=== PATIENT | male | born 1955 | race Caucasian/White ===

== ENCOUNTER → 2017-03-18 16:08 | Outpatient (CLI) | payer OTHER, SELFPAY ==
[2017-03-18 15:24] VITALS: BMI 26.2
[2017-03-18 16:08] VITALS: BP 200/100
[2017-03-18 17:23] LABS: Absolute Lymphocyte Count 2.89 X10^3/ul (0.83-4.51); Absolute Neutrophil Count 6.2 X10^3/uL (2.0-7.7); Basophil# 0.08 X10^3/uL; Basophil% 0.8 % (0-1); Eosinophil# 0.34 X10^3/uL; Eosinophils% 3.3 % (0-5); Hematocrit 41.8 % (40-54); Hemoglobin 14.2 g/dl (13.0-16.5); Lymphocyte # 2.89 X10^3/ul (4.0); Lymphocyte % 27.9 % (19-41); Mean Corpuscular Hgb 28.7 pg (27.0-32.0); Mean Corpuscular Volume 84.4 fL (80-94); Mean Platelet Vol. 10.4 fl (6.2-12.0); Monocyte# 0.83 X10^3/uL; Neutrophil % 59.8 % (47-70); Platelet Count 249 K/mm3 (150-450); RBC Distribution Width CV 12.7 % (11.6-14.6); RBC Distribution Width SD 38.4 fl (35.1-43.9); Red Blood Count 4.95 M/mm3 (4.6-6.2); White Blood Count 10.4 K/mm3 (4.4-11.0)
[2017-03-18 17:27] LABS: POSITIVE COUNT NO; POSITIVE DIFFERENTIAL NO; POSITIVE MORPHOLOGY NO
[2017-03-18 17:39] LABS: ALB/GLOB Ratio 0.8 RATIO (0.9-2.4); AST(SGOT) 15 U/L (15-37); Alanine Aminotransfer ALT/SGPT 21 U/L (16-61); Albumin, Serum 3.1 g/dL (3.2-5.0); Alkaline Phosphatase 127 U/L (45-117); Anion Gap 7 (5-15); BUN 31 mg/dL (7-18); BUN/Creat Ratio 18.7 RATIO (10-20); Calcium,Total 8.7 mg/dL (8.5-10.1); Chloride 97 mmol/L (98-107); Creatinine, Serum 1.66 mg/dL (0.70-1.30); EST Glomerular Filtration Rate 45 mL/min (>60); Est Glom Filt Rate - Afr Amer 54 mL/min (>60); Glucose 314 mg/dL (74-106); Potassium 3.1 mmol/L (3.5-5.1); Protein, Total 7.1 g/dL (6.4-8.2); Sodium Level 135 mmol/L (136-145); Thyroid Stim Hormone (TSH) 1.24 uIU/mL (0.358-3.74)
[2017-03-18 17:52] LABS: Hemoglobin A1c 14.1 % (4.2-6.3)
[2017-03-18 18:23] LABS: Microalbumin:Creatinine Ratio 2158.9 mg/g CRE (<30 mg/g CRE)
== END ==
PROVIDERS: Family Provider Internal Medicine; PCP Internal Medicine; Visit Provider Nurse Practitioner Family
DX: I10 Essential (primary) hypertension (principal); E11.9 Type 2 diabetes mellitus without complications
CPT/HCPCS: 80053; 82043; 82570; 83036; 84443; 85025

== ENCOUNTER → 2017-04-06 16:47 | Outpatient (CLI) | payer OTHER, SELFPAY ==
[2017-04-06 17:48] LABS: Anion Gap 7 (5-15); BUN 30 mg/dL (7-18); BUN/Creat Ratio 16.6 RATIO (10-20); Calcium,Total 9.1 mg/dL (8.5-10.1); Chloride 99 mmol/L (98-107); Creatinine, Serum 1.81 mg/dL (0.70-1.30); EST Glomerular Filtration Rate 40 mL/min (>60); Est Glom Filt Rate - Afr Amer 49 mL/min (>60); Glucose 134 mg/dL (74-106); Potassium 3.1 mmol/L (3.5-5.1); Sodium Level 138 mmol/L (136-145)
== END ==
PROVIDERS: Family Provider Internal Medicine; PCP Internal Medicine; Visit Provider Nurse Practitioner Family
DX: E87.6 Hypokalemia (principal)
CPT/HCPCS: 36415; 80048

== ENCOUNTER → 2017-04-19 15:39 | Outpatient (CLI) | payer OTHER, SELFPAY ==
--- NOTE | 2017-04-19 15:41 | RAD_ITS ---
STUDY: X-RAY - RIGHT HAND REASON FOR EXAM: Linear growth on palmar surface for one year. TECHNIQUE: 3 view(s) of the hand. COMPARISON: None. FINDINGS: Normal radiocarpal articulation. Normal distal radioulnar joint. Normal visualized carpal bones. Normal carpal articulations There are marginal osteophytes and joint space narrowing of the carpometacarpal articulation of the thumb. Normal second through fifth carpometacarpal joints. Normal metacarpi. Normal metacarpophalangeal joint of the thumb. Normal interphalangeal joint of the thumb. Normal proximal and distal phalanges of the thumb. Normal metacarpophalangeal joints of the second through fifth fingers. There are small marginal osteophytes and mild joint space narrowing of the second and fifth distal interphalangeal joints. Normal phalanges of the second through fifth fingers. There is vascular calcification. RAD/Hand Min 3 Views IMPRESSION: Arthrosis of the first carpometacarpal joint, and second and fifth distal interphalangeal joints. Electronically Signed: Ben Rice MD at 16:20 EST Tel , Service support ,
== END ==
PROVIDERS: Family Provider Internal Medicine; PCP Internal Medicine; Visit Provider Orthopaedic Surgery
DX: M79.641 Pain in right hand (principal); M18.11 Unilateral primary osteoarthritis of first carpometacarpal joint, right hand
CPT/HCPCS: 73130

== ENCOUNTER → 2017-06-08 14:58 | Outpatient (CLI) | payer OTHER, SELFPAY ==
[2017-06-08 16:26] LABS: ALB/GLOB Ratio 0.8 RATIO (0.9-2.4); AST(SGOT) 10 U/L (15-37); Alanine Aminotransfer ALT/SGPT 16 U/L (16-61); Albumin, Serum 3.3 g/dL (3.2-5.0); Alkaline Phosphatase 84 U/L (45-117); Anion Gap 7 (5-15); BUN 37 mg/dL (7-18); BUN/Creat Ratio 20.3 RATIO (10-20); Calcium,Total 9.1 mg/dL (8.5-10.1); Chloride 103 mmol/L (98-107); Cholesterol 130 mg/dL (200); Creatinine, Serum 1.82 mg/dL (0.70-1.30); EST Glomerular Filtration Rate 40 mL/min (>60); Est Glom Filt Rate - Afr Amer 49 mL/min (>60); Globulin 4.1 g/dL (2.2-4.2); Glucose 203 mg/dL (74-106); High Density Lipoprotein 37 mg/dL; Potassium 3.6 mmol/L (3.5-5.1); Protein, Total 7.4 g/dL (6.4-8.2); Sodium Level 140 mmol/L (136-145); Triglycerides 147 mg/dL; Very Low Density Lipoprotein 29 mg/dL (5-40)
== END ==
PROVIDERS: Family Provider Internal Medicine; PCP Internal Medicine; Visit Provider Nurse Practitioner Family
DX: E87.6 Hypokalemia (principal); E11.9 Type 2 diabetes mellitus without complications
CPT/HCPCS: 36415; 80053; 80061

== ENCOUNTER → 2017-07-06 13:07 | Outpatient (CLI) | payer OTHER, SELFPAY ==
--- NOTE | 2017-07-06 14:22 | NEURO ---
NCS and/or EMG Patient Report Ordering Doctor: Colette Carnes DATE OF SERVICE: 07/06/17 Melvin Hermosillo is a 61-year-old male who presents for electrodiagnostic testing of the upper limbs. He has numbness and tingling in both hands. He also reports a history of poorly controlled diabetes. Electrodiagnostic findings: Median motor nerve demonstrates prolonged distal latency bilaterally with normal amplitude and reduced conduction velocity. Normal right ulnar motor response. Left ulnar motor nerve demonstrates prolonged distal latency with reduced amplitude and reduced conduction velocity. No significant drop in conduction across the elbow. Prolonged median and ulnar F waves. Prolonged median sensory distal latency is noted absent left ulnar sensory response on needle EMG 1+ fibrillations noted in the right first dorsal interosseous. Electrodiagnostic impression: This is an abnormal study in the upper limbs. 1. Findings demonstrate bilateral median mononeuropathy, consistent with a moderate to advanced bilateral carpal tunnel syndrome 2. Advanced left-sided ulnar neuropathy is noted, without evidence of cubital tunnel syndrome. 3. Consider correlating with electrodiagnostic testing of the lower limbs to evaluate for peripheral polyneuropathy. If there are any further questions, please not hesitate to contact me
== END ==
LOC: PSN 13:07
PROVIDERS: Family Provider Internal Medicine; PCP Internal Medicine; Visit Provider Orthopaedic Surgery
DX: G56.01 Carpal tunnel syndrome, right upper limb (principal); G56.23 Lesion of ulnar nerve, bilateral upper limbs
CPT/HCPCS: 95886; 95912

== ENCOUNTER → 2017-08-19 16:28 | Outpatient (CLI) | payer OTHER, SELFPAY ==
[2017-08-19 17:36] LABS: Anion Gap 9 (5-15); BUN 40 mg/dL (7-18); BUN/Creat Ratio 20.6 RATIO (10-20); Calcium,Total 8.9 mg/dL (8.5-10.1); Chloride 108 mmol/L (98-107); Creatinine, Serum 1.94 mg/dL (0.70-1.30); EST Glomerular Filtration Rate 37 mL/min (>60); Est Glom Filt Rate - Afr Amer 45 mL/min (>60); Glucose 63 mg/dL (74-106); Potassium 3.6 mmol/L (3.5-5.1); Sodium Level 143 mmol/L (136-145)
[2017-08-19 17:46] LABS: Hemoglobin A1c 9.5 % (4.2-6.3)
== END ==
PROVIDERS: Family Provider Internal Medicine; PCP Internal Medicine; Visit Provider Internal Medicine
DX: I10 Essential (primary) hypertension (principal); E87.6 Hypokalemia; E11.9 Type 2 diabetes mellitus without complications
CPT/HCPCS: 36415; 80048; 83036

== ENCOUNTER 2017-08-31 08:00 | Day surgery (SDC) | payer OTHER, SELFPAY ==
[2017-08-31] VITALS (9 sets, daily range): BP systolic 134–179; BP diastolic 81–93; PULSE 51–58; RESP 14–18; TEMP 36.4–36.5; O2SAT 94–98; BMI 27.2
[2017-08-31] MEDS: Cefazolin 2 GM in 0.9% Normal Saline 100 ML IV (07:00)
[2017-08-31 09:01] LABS: Bedside Glucose 130 mg/dL (70-110)
[2017-08-31] MEDS: Mupirocin Ointment 22gm Tube 1 APPLIC (10:46)
--- NOTE | 2017-08-31 11:24 | PCM.DC.ORTHO ---
Discharge Diet: No Restrictions - use hand as tolerated, keep clean and dry, follow up in 2 weeks for dressing change and suture removal Discharge Activity: May Not Drive May shower in (days): 1 Ice area for (Minutes): 20 - Every hour while awake. Weight Bearing Status: Weight bearing as tolerated Keep extremity elevated above heart level: Operative Extremity Call your doctor if your incision/area has: Continuous Slow Oozing, Sudden Increased Bleeding, Increased Pain/ Swelling, Increased Redness, Foul Smelling Discharge Call your doctor if you observe: Fever of 101 or Higher, Coldness, Increased Pain, Numbness or Tingling, Change in Color, Calf discomfort Allergies/Adverse Reactions: Allergies No Known Allergies Allergy (Verified 08/31/17 08:31) Medications to take at Discharge chlorthalidone 25 mg tablet 25 mg PO QDAY #90 tab 03/07/17 glipizide ER 5 mg tablet, extended release 24 hr 10 mg PO DAILY@0800 #90 tab 03/07/17 lisinopril 40 mg tablet 40 mg PO QDAY #90 tab 03/07/17 metoprolol succinate ER 100 mg tablet,extended release 24 hr 100 mg PO .daily #90 tab 03/07/17 timolol maleate 0.25 % eye drops 1 drp OPHTHALMIC DAILY #10 ml 03/07/17 potassium chloride ER 20 mEq tablet,extended release 40 meq PO BID #120 tab 04/07/17 aspirin 325 mg tablet 325 mg PO DAILY 06/15/17 hydralazine 50 mg tablet 75 mg PO Q8H #90 tab 06/15/17 amlodipine 10 mg tablet 10 mg PO QDAY #60 tab 08/22/17 Insulin Glargine,Hum.rec.anlog [Cris Cheema U-100] 27 unit [facility] 08/24/17 Primary Care Physician: Solomon Melendrez MD [Primary Care Provider] - Test Results: Test results from this visit will be discussed in further detail at your follow-up appointment, if applicable. Please Follow Up With: Colette Carnes, - [phone]
--- NOTE | 2017-08-31 11:25 | OP.PCM_ITS ---
Report of Operation Date of Procedure: 08/31/17 Pre-Operative Diagnosis: left carpal tunnel syndrome Post-Operative Diagnosis: same Surgery/Procedure Performed:: left carpal tunnel release Type of Anesthesia:: Isabel Florentino Anesthesiologist: Akash Parkinson Drains: wtt- 15 min Estimated Blood Loss (mL): none Fluids Replaced: 1000ml lr Description of Procedure: Preoperative note Patient is a 61 year old male patient with nerve conduction study confirming carpal tunnel syndrome. Patient failed conservative treatment for her carpal tunnel elected proceed with left carpal tunnel release. Risks benefits and alternatives surgery discussed with patient. Risks including but not limited to blood loss, blood clot, infection, neurovascular injury, failure procedure, loss of life and loss of limb. Patient is aware like proceed with left carpal tunnel release. Operative note Patient seen and examined preoperative holding area. Left hand was marked. History and physical and consent reviewed. Patient was brought to the operating room placed supine on the operating table. Sign in, anesthesia, antibiotics were administered. Left upper extremity was prepped and draped after [place] block was initiated. All bony prominences well-padded SCDs placed on bilateral lower extremities. We marked out our incisions for our carpal tunnel release at the intersection of Hillary's line in the fourth ray flexed. We extended about a centimeter and a half. Timeout was performed. We then checked ensure that the [place] block was working with pickups which it was. We then used a 15 blade to make a skin incision. We then dissected down tenotomy syllable of the transverse carpal ligament. We then used a new 15 blade cut through the transverse carpal ligament down to the level of the median nerve. We then further released the median nerve the combination of the 15 blade and tenotomies. The nerve was grayish in color and adherent to the transverse carpal ligament volarly. We released the transverse carpal ligament distally to the fat pad and then proximally under standard technique. We then palpated to ensure that we released all of the transverse carpal ligament which we did. We irrigated the incision with copious amounts of sterile saline. All bleeders were coagulated. The incision was closed with interrupted 4-0 nylon stitches. Tourniquet was deflated for total working time of 14 minutes. Patient tolerated procedure well there were no complications. Patient transferred to recovery room in stable condition. Postoperative note Hospital pharmacy has prescription Leave dressing clean dry and intact Follow-up in 2 weeks Call with concerns This note was generated with [employer] dictation software. It may contain incorrect words, spelling, and punctuation that were not noted in checking the note before signing.
[2017-08-31 12:11] LABS: Bedside Glucose 152 mg/dL (70-110)
== END 2017-08-31 12:40 | disposition home or self-care (01) ==
LOC: SDC 08:01 → AC 08:02
PROVIDERS: Family Provider Internal Medicine; PCP Internal Medicine; Visit Provider Orthopaedic Surgery
PROC: (CPT 64721; principal; 2017-08-31 09:15)
DX: G56.02 Carpal tunnel syndrome,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 (principal); I69.398 Other sequelae of cerebral infarction; I10 Essential (primary) hypertension; K21.9 Gastro-esophageal reflux disease without esophagitis; E11.9 Type 2 diabetes mellitus without complications; H40.9 Unspecified glaucoma; M19.90 Unspecified osteoarthritis, unspecified site; Z87.891 Personal history of nicotine dependence; Z79.4 Long term (current) use of insulin; Z79.84 Long term (current) use of oral hypoglycemic drugs; Z79.811 Long term (current) use of aromatase inhibitors; Z79.899 Other long term (current) drug therapy
CPT/HCPCS: 64721; 82962; J7120; J2405

== ENCOUNTER → 2017-09-05 13:31 | Outpatient (CLI) | payer OTHER, SELFPAY ==
--- NOTE | 2017-09-14 08:34 | LEAS ---
Arterial Study - Arterial Study Arterial Study: Date of scan: 09/05/[address] Avila History: Patient with previous smoking hypertension and diabetes. Interpretation: Right lower extremity shows more of a monophasic flow noted at the ankle the posterior tibial unable to get a ABIs its noncompressible. More of a biphasic flow noted of the dorsalis pedis with an HÉCTOR 1.15. Next Left lower extremity both vessels are noncompressible and unable to get an HÉCTOR at the ankle. Duplex that shows more of a triphasic waveform noted the posterior tibial and a biphasic of the DP. Impression: 1. Evidence of some arterial occlusive disease with noncompressibility noted at the ankle and biphasic flow of the dorsalis pedis with the HÉCTOR 1.15 that may be slightly falsely elevated. Further evaluation as clinically warranted. 2. Unable to get an HÉCTOR consistent with medial calcinosis. There is triphasic flow noted the posterior tibial. Further evaluation as clinically warranted
== END ==
LOC: CVS 13:31
PROVIDERS: Family Provider Internal Medicine; PCP Internal Medicine; Visit Provider Internal Medicine
DX: M79.604 Pain in right leg (principal); R25.2 Cramp and spasm; I10 Essential (primary) hypertension; Z87.891 Personal history of nicotine dependence
CPT/HCPCS: 93922

== ENCOUNTER → 2017-10-05 15:41 | Outpatient (CLI) | payer OTHER, SELFPAY ==
[2017-10-05 18:00] LABS: BUN 38 mg/dL (7-18); Creatinine, Serum 2.12 mg/dL (0.70-1.30); Glucose 186 mg/dL (74-106)
[2017-10-05 18:01] LABS: Anion Gap 12 (5-15); BUN/Creat Ratio 17.9 RATIO (10-20); Calcium,Total 8.8 mg/dL (8.5-10.1); Chloride 101 mmol/L (98-107); EST Glomerular Filtration Rate 34 mL/min (>60); Est Glom Filt Rate - Afr Amer 41 mL/min (>60); Potassium 2.7 mmol/L (3.5-5.1); Sodium Level 140 mmol/L (136-145)
[2017-10-05 18:14] LABS: Microalbumin:Creatinine Ratio 805.4 mg/g CRE (<30 mg/g CRE)
== END ==
LOC: LAB 15:41
PROVIDERS: Family Provider Internal Medicine; PCP Internal Medicine; Visit Provider Internal Medicine
DX: E11.9 Type 2 diabetes mellitus without complications (principal)
CPT/HCPCS: 36415; 80048; 82043; 82570

== ENCOUNTER 2017-10-21 08:53 | Day surgery (SDC) | payer OTHER, SELFPAY ==
--- NOTE | 2017-10-14 15:00 | NURSING ---
Message left with pt about needing to increase po potassium intake and have potassium level rechecked in three days.
[2017-10-21 09:23] VITALS: BP 148/85; PULSE 55; RESP 16; TEMP 36.3; O2SAT 98; BMI 26.4
--- NOTE | 2017-10-21 09:52 | H&P.OPEN ---
Past Medical/Surgical History - Planned Operation Planned Operative Procedure/s: cscope/open access Date of Operative Procedure: 10/21/17 Permit Signed: No S.O.S: No Is This Patient Having a Total Joint: No - Previous Hospitalizations/Surgeries HX Hospitalizations: Yes - cva 2-3 yrs ago HX of Surgeries: right carpal tunnel 2018. colonoscopy Any Problems With Anesthesia: No You/Your Family Experience Fever (Hyperthermia) With Anes: No Cholinesterase deficiency: No - Cardiovascular Hx Chest Pain within Last 2 months: No Hx of Irregular Heartbeat and/or Afib: No Hx Heart Attack: No Hx Congestive Heart Failure: No Hx Rheumatic Fever: No Hx Hypertension: Yes - controlled with med most days Hx Internal Defibrillator: No Hx Pacemaker: No Hx Cardiac Catheterization: No Hx Cardiac Surgery/Stents/Etc.: No Hx Stress Test: Yes - over 10 yrs ago HX Edema: Yes - legs prn Hx Pain in Legs when Walking/Leg Cramps: Yes - cramps at night - Respiratory Chronic Cough: No HX of Shortness of Breath: No Hoarseness: No Hx Chronic Obstructive Pulmonary Disease (COPD): No Hx Asthma: No Hx Emphysema: No Hx Sleep Apnea: No Hx Oxygen Use at Home: No Hx Respiratory Tract Infection/Cold (presently): No Do You Snore Loudly (louder than talking or can be heard): No Do You Often Feel Tired/ Fatigued/ Sleepy [place]ring Daytime?: Yes Has Anyone Observed You Stop Breathing During Sleep?: No Result (for STOP score): Positive Hx Smoking: Yes - quit 30 yrs ago Smoking Status: Former smoker - Gastrointestinal Hx Gastroesophageal Reflux: No - occ heartburn prn tums Hx Gastrointestinal Disorders: No Hx Gastrointestinal Bleed: No Hx Ulcer: No Hx Hiatal Hernia: No Difficulty Chewing/Swallowing: Yes - trooubles with swallowing at times Recent Onset of Swallowing Problems: No Special diet followed at home: Yes - diabetic Hx Unplanned Weight Loss of 20#: No HX Unplanned Weight Gain of 20#: No - Neurological Hx Seizures: No HX Syncope/Blackout Spells/Unconsciousness: No Hx CVA/Stroke: Yes - 2-3 yrs ago/lost perpherial vision right eye Hx Transient Ischemic Attacks (TIA): Yes Hx Multiple Sclerosis: No Hx Parkinson's Disease: No Hx Head/Neck Injury: No Hx Headaches: No Hx Back Injury/Pain: Yes - arthritis Recent Onset of Speech Difficulty: No Restless Legs: No Does patient have nerve stimulator: No Patient instructed to have device shut off: No Rep notified?: No - Blood Disorder Hx Leukemia: No Bleeding Tendencies: Yes - bruises easily Hx Deep Vein Thrombosis: No Hx High Cholesterol: No Blood Transmitted Disease: No Hx Hepatitis: No Hx Cirrhosis: No Hx Anemia: No Hx Blood Disorders: No - Genitourinary Hx Renal Disease: Yes - ckd d/t diabetes/will be seeing nephralogist Hx Dialysis: No - Musculoskeletal Hx Arthritis: Yes Hx Rheumatoid Arthritis: No Hx Gout: No Recent Onset of an Orthopedic Problem: No - Endocrine Hx Diabetes: Yes Insulin: Yes Thyroid Disease: No Hx Steroid Therapy: No - Psycho/Social Hx Substance Use: No Hx Alcohol Use: Yes - rarely Hx Anxiety: No Hx Depression: No Mental Illness: No Hx Dementia: No - Miscellaneous Hx Cancer: No Recent Exposure to Contagious Disease: No Active MRSA: No Hx of C-Diff: No Any Loose Teeth: No Allergies No Known Allergies Allergy (Verified 10/21/17 09:18) - Discharge Is Pt Admitted From a [facility], or a Assisted: No Who Could Help: family After D/C, Where Do you Plan to Go: Return Home - From the PAT History Number of Risk Factors: 5 - Physical Exam General: Alert, Oriented x3, Cooperative Neck: No JVD Lungs: Normal air movement Cardiovascular: Regular rate, Regular Rhythm Abdomen: Soft, Non Tender, Non-Distended Vital Signs Temp Pulse Resp BP Pulse Ox 97.4 F L 55 L 16 148/85 H 98 10/21/17 09:23 10/21/17 09:23 10/21/17 09:23 10/21/17 09:23 10/21/17 09:23 Oxygen Delivery Method Room Air Weight: 200 lb 9.93 oz Body Mass Index (BMI) 26.4 Finger Stick Blood Glucose 152 Assessment/Plan 61-year-old male for screening colonoscopy 1. Patient reports he is having no abdominal pain or blood in his stool. He has no weight loss. He has a normal colonoscopy about 20 years ago. He has no family history of colon cancer. 2. I explained endoscopy in detail to the patient. I explained the risks including but not limited to stroke or heart attack with anesthesia, perforation of the GI tract, bleeding, infection. I explained that any of these could necessitate further emergency surgery. The patient understands and all questions were answered sufficiently. The patient wishes to proceed with procedure. Jt Jj MD Pager: [facility] [address] [place] [address] [address] [place] [address] Office: Surgery Risks - Colonoscopy Risks Include but are not Limited To: Risks include but are not limited to: Bleeding, perforation requiring further surgery, inability to complete colonoscopy requiring barium enema.
[2017-10-21 10:16] LABS: Bedside Glucose 223 mg/dL (70-110)
[2017-10-21 11:01] VITALS: BP 103/68; BP 148/85; PULSE 52; RESP 14; TEMP 36.5; O2SAT 95
--- NOTE | 2017-10-21 11:01 | PCM.OPRPT ---
Problem List (1) Screen for colon cancer Status: Acute Report of Operation Date of Procedure: 10/21/17 Pre-Operative Diagnosis: Screening for colon cancer Post-Operative Diagnosis: Normal colonoscopy Surgery/Procedure Performed:: Colonoscopy Description of Procedure: The major risks and benefits associated with the procedure were explained to the patient in detail. The patient verbalized understanding and agreement with the same. The patient was brought to the endoscopy suite. After adequate sedation was achieved, the patient was placed in the left lateral decubitus position and a digital rectal exam was performed. This examination was within normal limits. A well-lubricated colonoscope was then inserted into the rectum and advanced under direct visualization to the level of the cecum. The bowel prep was good. The cecum was identified by both visual and anatomic landmarks. A photograph was taken of the end of the cecum. The scope was then fully withdrawn while examining the color, texture, anatomy and integrity of the mucosa from the cecum to the anal canal. The findings were consistent with normal colonic mucosa. Over 6 minutes were taken to examine the colonic mucosa. Upon reaching the rectum the scope was retroflexed to examine the distal rectal vault. The scope was then straightened and was completely retrieved upon exiting the anal canal and the procedure was terminated. The patient was then transferred to the recovery room in stable condition. Recommendations for follow up: 10 years
[2017-10-21 11:05] VITALS: BP 148/85; BP 89/71; PULSE 51; RESP 14; O2SAT 94
[2017-10-21 11:10] VITALS: BP 129/73; BP 148/85; PULSE 52; RESP 16; O2SAT 99
[2017-10-21 11:16] VITALS: BP 118/74; BP 148/85; PULSE 98; RESP 16; TEMP 36.3; O2SAT 98
[2017-10-21 11:50] VITALS: BP 148/85
== END 2017-10-21 11:51 | disposition home or self-care (01) ==
LOC: EN 08:54 → AC 08:55
PROVIDERS: Family Provider Internal Medicine; PCP Internal Medicine; Visit Provider Surgery
PROC: 0DJD8ZZ Inspection of Lower Intestinal Tract, Via Natural or Artificial Opening Endoscopic (ICD-10-PCS; CPT 45378; principal; 2017-10-21 09:55)
DX: Z12.11 Encounter for screening for malignant neoplasm of colon (principal); I69.312 Visuospatial deficit and spatial neglect following cerebral infarction; I12.9 Hypertensive chronic kidney disease with stage 1 through stage 4 chronic kidney disease, or unspecified chronic kidney disease; E11.22 Type 2 diabetes mellitus with diabetic chronic kidney disease; N18.9 Chronic kidney disease, unspecified; M19.90 Unspecified osteoarthritis, unspecified site; R23.3 Spontaneous ecchymoses; Z79.4 Long term (current) use of insulin; Z79.82 Long term (current) use of aspirin; Z79.899 Other long term (current) drug therapy; Z87.891 Personal history of nicotine dependence
CPT/HCPCS: 45378; 82962; J7120

== ENCOUNTER → 2017-12-15 15:44 | Outpatient (CLI) | payer OTHER, SELFPAY ==
[2017-12-15 16:47] LABS: ALB/GLOB Ratio 0.8 RATIO (0.9-2.4); AST(SGOT) 19 U/L (15-37); Alanine Aminotransfer ALT/SGPT 18 U/L (16-61); Albumin, Serum 3.1 g/dL (3.2-5.0); Alkaline Phosphatase 98 U/L (45-117); Anion Gap 5 (5-15); BUN 23 mg/dL (7-18); BUN/Creat Ratio 14.1 RATIO (10-20); Calcium,Total 8.7 mg/dL (8.5-10.1); Chloride 102 mmol/L (98-107); Creatinine, Serum 1.63 mg/dL (0.70-1.30); EST Glomerular Filtration Rate 46 mL/min (>60); Est Glom Filt Rate - Afr Amer 55 mL/min (>60); Glucose 255 mg/dL (74-106); Potassium 4.1 mmol/L (3.5-5.1); Protein, Total 7.1 g/dL (6.4-8.2); Sodium Level 135 mmol/L (136-145)
[2017-12-22 12:15] LABS: Aldosterone, Serum 15.3 ng/dL (0.0-30.0); Renin, Plasma 2.409 ng/mL/hr (0.167-5.380)
== END ==
LOC: LAB 15:48
PROVIDERS: Family Provider Internal Medicine; PCP Internal Medicine; Referring Provider Internal Medicine; Visit Provider Internal Medicine
DX: I12.9 Hypertensive chronic kidney disease with stage 1 through stage 4 chronic kidney disease, or unspecified chronic kidney disease (principal); N18.3 Chronic kidney disease, stage 3 (moderate); E87.6 Hypokalemia
CPT/HCPCS: 36415; 80053; 82088; 84244

== ENCOUNTER → 2018-01-27 13:50 | Outpatient (CLI) | payer OTHER, SELFPAY ==
[2017-12-23 09:15] VITALS: BMI 27.9
--- NOTE | 2018-01-27 13:57 | VDLE_ITS ---
Reason For Study: LEG PAIN AND SWELLING RIGHT LEFT GSV is normal. GSV is normal. CFV is compressible, spontaneous, phasic, CFV is compressible, spontaneous, phasic, competent and demonstrates normal competent, and demonstrates normal augmentation. augmentation. FV is compressible, spontaneous, phasic, FV is compressible, spontaneous, phasic, competent and demonstrates normal competent and demonstrates normal augmentation. augmentation. POP V is compressible, spontaneous, phasic, POP V is compressible, spontaneous, phasic, competent and demonstrates normal competent and demonstrates normal augmentation. augmentation. T/P Trunk is compressible. T/P Trunk is compressible. PTV is compressible. PTV is compressible. RT PerV is compressible. LT PerV is compressible. Procedure Exam performed in department. A preliminary report was called and/or faxed to Dr. Avila. Interpretation Summary 1. Bilateral no DVt or SVt noted. 2. No deep or superficial reflux. Ordering Physician: Hosea Avila Referring Physician: Hosea Avila Performed By: Mishel Velez RVT
--- OUTSIDE RECORDS SUMMARY | 2018-05-03 04:29 | XMS RPT_ITS ---
:1955 Author Organization [place] Support Name Relationship Address Phone ÁNGEL CONCEPCION Unavailable Unavailable + [place] [address] CORINNA, NARINDER Unavailable Unavailable + [place] [address] [place] [employer] Unavailable [address] + [place] [address] JAMEY, ÁNGEL Unavailable [address] [place] [id number] CORINNA, NARINDER Unavailable [address] + [address] [employer] Unavailable [address] + [place] [address] CONCEPCION, ÁNGEL Unavailable Unavailable + CORINNA, NARINDER Unavailable Unavailable + [place] [employer] Unavailable [address] + [place] [phone] CONCEPCION, ÁNGEL Unavailable [address] + [address] [place] [phone] CORINNA, NARINDER Unavailable [address] + [address] [place] [phone] [place] [employer] Unavailable [address] + [place] [phone] CONCEPCION, ÁNGEL Unavailable Unavailable + [place] [address] CORINNA, NARINDER Unavailable Unavailable + [place] [address] [place] [employer] Unavailable [address] + [place] [phone] CONCEPCION, ÁNGEL Unavailable Unavailable + [place] [address] CORINNA, NARINDER Unavailable Unavailable + [place] [address] [place] [employer] Unavailable [address] + [place] [address] CONCEPCION, ÁNGEL Unavailable . + [place] [phone] CORINNA, NARINDER Unavailable . + [place] [phone] [place] [employer] Unavailable [address] + [place] [phone] CONCEPCION, ÁNGEL Unavailable [address] + [address] [place] [phone] CORINNA, NARINDER Unavailable [address] + [address] [place], [facility] [place] [employer] Unavailable [address] + [place], [facility] CONCEPCION, ÁNGEL Unavailable [address] + [address] [place] [phone] CORINNA, NARINDER Unavailable [address] + [address] [place] [phone] [place] [employer] Unavailable [address] + [place] [phone] CONCEPCION, ÁNGEL Unavailable [address] + [address] [place] [phone] CORINNA, NARINDER Unavailable [address] + [address] [place] [address] [place] [employer] Unavailable [address] + [place] [address] CONCEPCION, ÁNGEL Unavailable [address] + [address] [place] [phone] CORINNA, NARINDER Unavailable [address] + [address] [place] [phone] [place] [employer] Unavailable [address] + [place], [facility] CONCEPCION, ÁNGEL Unavailable [address] + [address] [place] [phone] CORINNA, NARINDER Unavailable [address] + [address] [place] [phone] [place] [employer] Unavailable [address] + [place] [address] CONCEPCION, ÁNGEL Unavailable [address] + [address] [place], [place] [address] CORINNA, NARINDER Unavailable [address] + [address] [place] [address], [place] [address] [facility] [employer] Unavailable [address] + [place] [address] CONCEPCION, ÁNGEL Unavailable [address] + [address] [place] [address], [place] [address] CORINNA, NARINDER Unavailable [address] + [address] [place] [address], [place] [address] [facility] [employer] Unavailable [address] + [place] [address] CONCEPCION, ÁNGEL Unavailable [address] + [address] [place] [address] CORINNA, NARINDER Unavailable [address] + [address] [place] [address] [employer] Un[address] + [place] [address] CONCEPCION, ÁNGEL Unavailable [address] + [address] [place] [address], [place] [address] CORINNA, NARINDER Unavailable [address] + [address] [place] [address] [employer] Un[address] + [place] [address] CONCEPCION, ÁNGEL Unavailable [address] + [address] [place] [address], [place] [address] CORINNA, NARINDER Unavailable [address] + [address] [place] [address] [facility] [employer] Unavailable [address] + [place] [address] CONCEPCION, ÁNGEL Unavailable [address] + [address] [place] [address], [place] [address] CORINNA, NARINDER Unavailable [address] + [address] [place] [address] [facility] [employer] Unavailable [address] + [place] [address] CONCEPCION, ÁNGEL Unavailable [address] + [address] [place], [facility] CORINNA, NARINDER Unavailable [address] + [address] [place] [address], [place] [address] [facility] [employer] Unavailable [address] + [place], [place] [address] CONCEPCION, ÁNGEL Unavailable [address] + [address] [place] [address], [place] [address] CORINNA, NARINDER Unavailable [address] + [address] [place], [place] [address] [facility] [employer] Unavailable [address] + [place], [place] [address] CONCEPCION, ÁNGEL Unavailable [address] + [address] [place] [address], [place] [address] CORINNA, NARINDER Unavailable [address] + [address] [place] [address], [place] [address] [facility] [employer] Unavailable [address] + [place], [place] [address] CONCEPCION, ÁNGEL Unavailable [address] + [address] [place] [address], [facility] CORINNA, NARINDER Unavailable [address] + [address] [place] [address], [place] [address] [facility] [employer] Unavailable [address] + [place], [place] [address] JAMEY, ÁNGEL Unavailable [address] + [address] [place] [address], [place] [address] CORINNA, NARINDER Unavailable [address] + [address] [place] [address], [place] [address] [facility] [employer] Unavailable [address] + [place], [facility] CONCEPCION, ÁNGEL Unavailable [address] [place], [facility] CORINNA, NARINDER Unavailable [address] + [address] [place] [address], [facility] [place] [employer] Unavailable [address] + [place], [place] [address] CONCEPCION, ÁNGEL Unavailable [address] [place], [place] [address] CORINNA, NARINDER Unavailable [address] + [address] [place] [address], [address] [employer] Unavailable [address] + [place] [address] JAMEY, ÁNGEL Unavailable [address] + [address] [place] [address], [place] [address] CORINNA, NARINDER Unavailable [address] + [address] [place] [address], [address] [employer] Unavailable [address] + [place], [place] [address] JAMEY, ÁNGEL Unavailable [address] + [address] [place] [address], [place] [address] CORINNA, NARINDER Unavailable [address] + [address] [place] [address] [employer] Un[address] + [place] [address] JAMEY, ÁNGEL Unavailable [address] + [address] [place] [address], [place] [address] CORINNA, NARINDER Unavailable [address] + [address] [place] [address] [employer] Un[address] + [place] [address] JAMEY, ÁNGEL Unavailable [address] + [address] [place] [address] CORINNA, NARINDER Unavailable [address] + [address] [place] [address] [employer] Un[address] + [place] [address] [employer] Unavailable . +. [place] . JAMEY ÁNGEL Unavailable [address] + [address] [place] [address], [place] [address] CORINNA, NARINDER Unavailable [address] + [address] [place] [address] [employer] Unavailable . +. [place] . JAMEY ÁNGEL Unavailable [address] + [address] [place] [address] NARINDER WEINSTEIN Unavailable [address] [facility] [address] [place] [address] Care Team Providers Name Role Phone Demetrio Bae PERIPATOLOGIST-C Attending Unavailable Ganta, Michelle Referring Unavailable Ganta, Michelle Primary Care Unavailable Colette Carnes Attending Unavailable Oleghe, Efewongbe Referring Unavailable Oleghe, Efewongbe Primary Care Unavailable Colette Carnes Attending Unavailable Oleghe, Efewongbe Primary Care Unavailable Colette Carnes Attending Unavailable Oleghe, Efewongbe Referring Unavailable Oleghe, Efewongbe Attending Unavailable Oleghe, Efewongbe Referring Unavailable Hosea Avila Attending Unavailable Hosea Avila Referring Unavailable Oleghe, Efewongbe Primary Care Unavailable Oleghe, Efewongbe Attending Unavailable Oleghe, Efewongbe Referring Unavailable Oleghe, Efewongbe Attending Unavailable Oleghe, Efewongbe Referring Unavailable Oleghe, Efewongbe Primary Care Unavailable Darnell Spencer Consulting Unavailable Oleghe, Efewongbe Attending Unavailable Oleghe, Efewongbe Referring Unavailable Oleghe, Efewongbe Primary Care Unavailable Jt Jj Attending Unavailable Jt Jj Referring Unavailable Oleghe, Efewongbe Primary Care Unavailable Jt Jj Consulting Unavailable Zeferino Calvo Attending Unavailable Oleghe, Efewongbe Referring Unavailable Oleghe, Efewongbe Primary Care Unavailable Jt Jj Attending Unavailable Jt Jj Referring Unavailable Oleghe, Efewongbe Primary Care Unavailable Nurse, Surgery Attending Unavailable Oleghe, Efewongbe Referring Unavailable Oleghe, Efewongbe Attending Unavailable Oleghe, Efewongbe Referring Unavailable Oleghe, Efewongbe Primary Care Unavailable Oleghe, Efewongbe Attending Unavailable Oleghe, Efewongbe Referring Unavailable Oleghe, Efewongbe Primary Care Unavailable Colette Carnes Attending Unavailable Colette Carnes Attending Unavailable Oleghe, Efewongbe Referring Unavailable Oleghe, Efewongbe Primary Care Unavailable Oleghe, Efewongbe Attending Unavailable Oleghe, Efewongbe Referring Unavailable Oleghe, Efewongbe Primary Care Unavailable Oleghe, Efewongbe Attending Unavailable Oleghe, Efewongbe Referring Unavailable Oleghe, Efewongbe Primary Care Unavailable Oleghe, Efewongbe Attending Unavailable Oleghe, Efewongbe Referring Unavailable Oleghe, Efewongbe Primary Care Unavailable Oleghe, Efewongbe Attending Unavailable Oleghe, Efewongbe Referring Unavailable Oleghe, Efewongbe Primary Care Unavailable Chicorelli, Colette Attending Unavailable Chicorelli, Colette Referring Unavailable Oleghe, Efewongbe Primary Care Unavailable Chicorelli, Colette Attending Unavailable Oleghe, Efewongbe Referring Unavailable Oleghe, Efewongbe Primary Care Unavailable Oleghe, Efewongbe Attending Unavailable Oleghe, Efewongbe Referring Unavailable Chicorelli, Colette Attending Unavailable Chicorelli, Colette Referring Unavailable Oleghe, Efewongbe Primary Care Unavailable Oleghe, Efewongbe Attending Unavailable Oleghe, Efewongbe Referring Unavailable Oleghe, Efewongbe Primary Care Unavailable BaeDemetrio PERIPATOLOGIST-C Attending Unavailable BaeDemetrio PERIPATOLOGIST-C Referring Unavailable Oleghe, Efewongbe Primary Care Unavailable Oleghe, Efewongbe Attending Unavailable Oleghe, Efewongbe Referring Unavailable BaeDemetrio PERIPATOLOGIST-C Attending Unavailable BaeDemetrio PERIPATOLOGIST-C Referring Unavailable Oleghe, Efewongbe Primary Care Unavailable BaeDemetrio PERIPATOLOGIST-C Attending Unavailable Oleghe, Efewongbe Referring Unavailable Oleghe, Efewongbe Primary Care Unavailable BaeDemetrio PERIPATOLOGIST-C Attending Unavailable BaeDemetrio PERIPATOLOGIST-C Referring Unavailable Oleghe, Efewongbe Primary Care Unavailable Zarrabi, Rosaura Primary Care Unavailable Kancherjone, Perry Attending Unavailable Adi, Perry Admitting Unavailable Darek Strickland Admitting Unavailable Darek Strickland Attending Unavailable [facility] Primary Care Unavailable PROBLEMS PROBLEMS DATE TYPE CONDITION / CODE ATTENDING STATUS SOURCE 12/23/2017 Unknown E11.9 - Type 2 Oleghe, Active [place] diabetes mellitus [facility] without Hospital complications / Repository E11.9(ICD-10) 12/23/2017 Unknown E87.6 - Hypokalemia Oleghe, Active [place] / E87.6(ICD-10) [facility] Repository 12/23/2017 Unknown N18.9 - Chronic Oleghe, Active [place] kidney disease, [facility] unspecified / Hospital N18.9(ICD-10) Repository 12/15/2017 Unknown N18.3 - Chronic Oleghe, Active [place] kidney disease, [facility] stage 3 (moderate) Hospital / N18.3(ICD-10) Repository 11/04/2017 Unknown I10 - Essential Oleghe, Active [place] (primary) [facility] hypertension / Hospital I10(ICD-10) Repository 10/05/2017 Unknown I73.9 - Peripheral Oleghe, Active [place] vascular disease, [facility] unspecified / Hospital I73.9(ICD-10) Repository 10/05/2017 Unknown Z12.11 - Encounter Oleghe, Active [place] for screening for [facility] malignant neoplasm Hospital of colon / Repository Z12.11(ICD-10) 09/30/2017 Unknown 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, 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, [facility]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 / Hospital G56.02(ICD-10) Repository 08/23/2017 Unknown R25.2 - Cramp and Oleghe, Active [place] spasm / [facility] R25.2(ICD-10) Hospital Repository 04/19/2017 Unknown M79.641 - Pain in Chicorelli, Active [place] right hand / [facility] M79.641(ICD-10) Hospital Repository 03/18/2017 Unknown 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 Cardiovascular Services [address] [place] [address] Venous Duplex US - William Extrem 01/27/18 1359 MR#: [id number] Acct: [id number] Name: MELVIN CONCEPCION Deejay Rep #: [id number] : 1955 62 From: Hosea Avila MD Attending Dr: Hosea Avila MD Status: REG CLI Ordering Dr: Hosea Avila MD Date: 01/27/18 Location: [facility] Sex: M C Admitted: Reason For Study: LEG PAIN AND SWELLING RIGHT LEFT GSV is normal. GSV is normal. CFV is compressible, spontaneous, phasic, CFV is compressible, spontaneous, phasic, competent and demonstrates normal competent, and demonstrates normal augmentation. augmentation. FV is compressible, spontaneous, phasic, FV is compressible, spontaneous, phasic, competent and demonstrates normal competent and demonstrates normal augmentation. augmentation. POP V is compressible, spontaneous, phasic, POP V is compressible, spontaneous, phasic, competent and demonstrates normal competent and demonstrates normal augmentation. augmentation. T/P Trunk is compressible. T/P Trunk is compressible. PTV is compressible. PTV is compressible. RT PerV is compressible. LT PerV is compressible. Procedure Exam performed in department. A preliminary report was called and/or faxed to Dr. Avila. Interpretation Summary 1. Bilateral no DVt or SVt noted. 2. No deep or superficial reflux. Ordering Physician: Hosea Avila Referring Physician: Hosea Avila Performed By: Mishel Velez RVT 02/01/18 0812 Date Hosea Avila MD CC: Hosea Avila MD; Solomon Melendrez MD Date Dictated: 01/27/18 1359 Date Transcribed: 02/01/18 0812 Rib Puller: Signed CT SPINE CERVICAL W/O Observed: 01/24/2018 Status: F Source: [place] [facility] 4:[address] [facility] REPOSITORY Exam Date/Time: 01/24/2018 16:54 EST Reason for Exam: Trauma Report STUDY: CT Spine Cervical w/o Contrast; 01/24/2018 4:54 pm INDICATION: Trauma. COMPARISON: None. ACCESSION NUMBER(S): [id number] ORDERING CLINICIAN: Evaristo Badillo TECHNIQUE: Axial CT images of the cervical spine are obtained. Axial, coronal and sagittal reconstructions are provided for review. FINDINGS: Fractures: There is no evidence for an acute fracture of the cervical spine. Vertebral Alignment: Grade 1 retrolithesis C3-C4. Craniocervical Junction: The odontoid process and craniocervical junction are intact. Vertebrae/Disc Spaces: The cervical vertebral body heights are intact. Disc space narrowing throughout the cervical spine most pronounced at C6-C7 Prevertebral/Paraspinal Soft Tissues: The prevertebral and paraspinal soft tissues are unremarkable. IMPRESSION: No evidence for an acute fracture or subluxation of the cervical spine. FINAL REPORT Dictated: 01/24/2018 5:03 pm Ck Newell MD Signed (Electronic Signature): 01/24/2018 5:03 pm Signed by: Ck Newell MD Technologist: MATT CT HEAD OR BRAIN W/O Observed: 01/24/2018 Status: F Source: [place] [facility] 3:[address] [facility] REPOSITORY Exam Date/Time: 01/24/2018 15:50 EST Reason for Exam: Injury Report STUDY: CT Head or Brain w/o Contrast; 01/24/2018 3:50 pm INDICATION: Injury. Hit back of head with laceration to back of head. History of multiple CVAs. COMPARISON: 08/21/2015 ACCESSION NUMBER(S): [id number] ORDERING CLINICIAN: Evaristo Badillo TECHNIQUE: Contiguous unenhanced axial CT sections are performed from the skull base to the vertex. FINDINGS: The osseous structures are intact. The visualized portions of the paranasal sinuses and mastoid air cells are clear. There is ill-defined soft tissue swelling overlying the high axial calvarium at the midline. There are paramidline areas of encephalomalacia in the occipital lobes, greater on the left compatible with sites of old infarct in stable from the previous study. Chronic appearing small vessel infarcts are again identified in the inferior right cerebellar hemisphere and superior left cerebellar hemisphere. The cortical sulci and CSF spaces are otherwise symmetric in appearance. There is no sign of parenchymal hematoma or extra-axial fluid collection. There is no mass effect or midline shift. IMPRESSION: Focal areas of the occipital lobe encephalomalacia are again identified bilaterally and greater on the left. These findings are compatible with sites of old infarct and are unchanged from the previous study. Multiple chronic appearing small vessel infarcts in the cerebellum. No CT evidence of intracranial hemorrhage or mass effect. Exam Date/Time: 01/24/2018 15:50 EST Report Scalp soft tissue swelling overlying the high occipital calvarium at the midline. There is no underlying calvarial fracture. FINAL REPORT Dictated: 01/24/2018 4:05 pm Chriss Hansen MD Signed (Electronic Signature): 01/24/2018 4:05 pm Signed by: Chriss Hansen MD Technologist: [facility] INTERNAL MEDICINE Observed: 12/26/2017 Status: F Source: [place] OFFICE VISIT 4:29 PM [facility] Internal Medicine [address] [place] [address] [place] [address] OFFICE VISIT Date of Service: 12/23/17 MR#: [id number] Acct: [id number] Name: MELVIN CONCEPCION Rep #: [id number] : 1955 Provider: Solomon Melendrez MD Age/Sex: 62/M Location: [facility] [place] Status: Signed Intake Vital Signs12/23/17 Height 6 ft 1 in 12/23/17 Weight: 212 lb 12/23/17 Body Mass Index (BMI) 27.9 12/23/17 Blood Pressure 187/100 H 12/23/17 Blood Pressure Location Lt brachial Intake Visit Reasons: 1 mo f/u Chief Complaint: 1 mo follow-up visit Is patient in pain?: No Allergies No Known Allergies Allergy (Verified 12/23/17 09:16) Medications lisinopril 40 mg tablet 40 mg PO QDAY #90 tab 03/07/17 [Rx Confirmed 12/23/17] timolol maleate 0.25 % eye drops 1 drp OPHTHALMIC DAILY #10 ml 03/07/17 [Rx Confirmed 12/23/17] amlodipine 10 mg tablet 10 mg PO QDAY #60 tab 08/22/17 [Rx Confirmed 12/23/17] aspirin 81 mg tablet,delayed release 81 mg PO DAILY #90 tab 10/05/17 [Rx Confirmed 12/23/17] glipizide ER 5 mg tablet, extended release 24 hr 10 mg PO DAILY@0800 #90 tab 10/05/17 [Rx Confirmed 12/23/17] insulin glargine (U-100) 100 unit/mL (3 mL) subcutaneous pen 27 unit SC QAM #15 ml 10/05/17 [Rx Confirmed 12/23/17] Metoprolol Succinate [Toprol Xl] 50 mg PO DAILY 10/14/17 [History Confirmed 12/23/17] doxazosin 2 mg tablet 2 mg PO BID #60 tab 11/04/17 [Rx Confirmed 12/23/17] potassium chloride ER 20 mEq tablet,extended release 20 meq PO DAILY tab 12/23/17 [History Confirmed 12/23/17] spironolactone 25 mg tablet 25 mg PO DAILY 12/23/17 [History Confirmed 12/23/17] PFSH Medical History Arthritis (Acute) Cataracts, bilateral (Acute) Diabetes (Acute) Glaucoma (Acute) H/O: stroke (Acute) HTN (Acute) Vision problems (Acute) Surgical History h/o right carpal tunnel release (Acute) umbilical rupture (Inactive) Family History Mother Arthritis Melanoma Diabetes Hypertension Father Diabetes Hypertension Arthritis Brother Thyroid disorder Grandfather Arthritis Diabetes Cancer Grandmother Arthritis Diabetes Cancer Grandfather Arthritis Hypertension Diabetes Social History Smoking Status: Former smoker alcohol intake: current alcohol intake frequency: holidays/special occasions only Alcohol type: beer substance use type: does not use what type of physical activity do you participate in: walking frequency: 3-4 times per week duration: 45-60 minutes/day HPI HPI Chief Complaint: 1 mo follow-up visit Details: MELVIN TORRESINE, is a 62yo M who presents to the office today for follow-up of his chronic medical conditions. He has no acute complaints at this time. Blood pressure appears slightly elevated today. 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 He also states that he checked it previously and typically is around 130s. He had poor night rest last night. Denies chest pain, palpitations or shortness of breath. He reports compliance with his insulin however admits to not being very compliant with his diet lately. He plans to make changes. Kidney function improved slightly at last check. Started on spironolactone by nephrology due to hypokalemia and his potassium supplements were adjusted. ROS Const Constitutional: No chills, fatigue, fever(s), frequent falls, malaise, weakness, sleep problems or change in appetite Eyes Eyes: No blurry vision, change in vision, double vision, discharge or visual disturbances ENT ENT: No abnormal hearing, ear pain, ear pressure, tinnitus or dizziness/vertigo Resp Respiratory: No cough, shortness of breath or wheezing Cardio Cardiology: No chest pain at rest, chest pain with exertion, shortness of breath, dyspnea on exertion, generalized swelling, irregular heart rhythm, lightheadedness, orthopnea, fast heart rate or palpitations Gastro GI: No abdominal pain, change in bowel habits, constipation, diarrhea, nausea/dyspepsia or vomiting Genitourinary Male: No difficulty urinating, burning urination, painful urination, urinary incontinence, urinary frequency, urinary urgency, urinary hesitancy, urinary retention, blood in urine, Frequent nighttime urination/ nocturia, sexual problems, testicle lump or testicle pain Musc Musculoskeletal: No joint pain, back pain, joint swelling, limited range of motion, numbness or tingling Skin Skin: No change in skin color, itching, rash or wounds Breast Breast: No breast lump or breast pain Neuro Neurology: No frequent falls, weakness, abnormal hearing, numbness, tingling, unsteady gait/balance, dizziness, loss of vision, memory loss or visual disturbances Psych Psychiatric: No memory loss, No anxiety, No change in appetite, No depression, No Thoughts of harming yourself/Others Endo Endocrine: No fatigue, heat intolerance, increased thirst/drinking, increased hunger or increased urination Aller/Imm Allergy/Immunologic: No wheezing, itchy eyes or seasonal allergy symptoms Milo/Lymp Hematologic/Lymphatic: No easy bleeding, easy bruising or enlarged lymph nodes Exam Const General: cooperative, no acute distress Orientation: alert, awake, oriented x3 HENMT Head: atraumatic, normocephalic Ears: hearing grossly normal bilaterally Resp Effort AND Inspection: normal respiratory effort, able to speak in complete sentences Auscultation: Bilateral: Clear to Auscultation Cardio Rate: regular rate Rhythm: regular rhythm Heart Sounds: S1 normal, S2 normal GI Palpation: soft, no hepatosplenomegaly Neuro General: alert, awake, oriented x3, moves all extremities, CN's II-XI intact bilaterally Extrem General: no clubbing, cyanosis or edema Psych Appearance: grossly normal Mental Status: mental status grossly normal Affect: normal affect Office Meds Flucelvax Quad [id number] (PF) Performing Provider: Solomon Melendrez MD Administered by: Chantel Zaldivar on 12/23/17 10:14 Dose Route Admin Location Lot Number Expiration Date [place] 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 Hypertension I10 Plan Slightly elevated during this visit however patient states that it typically ranges around 130s systolic. Continue current medication and lifestyle/dietary modifications. Advised to call with any concerning blood pressure numbers. 2. Type 2 diabetes mellitus E11.9 Plan An average fasting blood sugar is said to range between 120- 140 and creatinine said to range around 150. Does admit to poor dietary compliance lately. He was encouraged to resume dietary management. Continue current medications. A1c in 1 month. Orders Orders: 3. Hypokalemia E87.6 Plan Stable at last check. Currently following up with nephrology and he was started on spironolactone. Repeat BMP in 1 month. Orders Orders: 4. CKD (chronic kidney disease) N18.9 Plan CKD 3. Initial worsening has improved. Continue current management and follow-up with nephrology. Orders Orders: 5. Flu vaccine need Z23 Plan Flu shot given. This note was generated with Motosmarty dictation software. It may contain incorrect words, spelling, and punctuation that were not noted in checking the note before signing. Orders Orders: Medications Discontinued: Flucelvax Quad [id number] (PF) (flu vac qs 2018(2 yr 60 mcg (0.5 mL) IM ONCE 0.5 mL 0RF NS up)CD(PF)) Discontinued Reason: Office Medicatio n has been Documented as given Coding Level of Care Code Off vis,est,level 3 Diagnoses Hypertension I10 Type 2 diabetes mellitus E11.9 Hypokalemia E87.6 CKD (chronic kidney disease) N18.9 Flu vaccine need Z23 12/26/17 1629 <Electronically signed by Solomon Melendrez MD> Date Solomon Melendrez MD Cosigner Signature: Date (if applicable) CC: COMPREHENSIVE METABOLIC Collected: 12/15/2017 Status: F Source: [place] 4:04 PM [facility] REPOSITORY Order Comment: DR SPENCER ORDERED BMP TYPE CODE TESTS RESULT OUT OF RANGE REFERENCE UNITS LAB L501.0100 74-106 mg/dL High GLU 255 Result Comment: Glucose result greater than or equal to 200 mg/dL suggests DIABETES MELLITUS per A.D.A. criteria. Please note revised GLUCOSE reference range effective 2017. LAB L501.1000 7-18 mg/dL High BUN 23 LAB L501.1100 0.70-1.30 mg/dL High CREAT,SERUM 1.63 Result Comment: The validity of the calculated GFR AND GFRAA in patients over 70 years has not been determined. Clinical correlation is essential. LAB L501.1110 >60 mL/min Low EST GFR 46 Result Comment: Non- GFR Calc LAB L501.1115 >60 mL/min Low EST GFR - AA 55 Result Comment: GFR Calc LAB L501.1300 10-20 RATIO Normal BUN/CRE 14.1 LAB L501.1500 6.4-8.2 g/dL T Normal PROT 7.1 LAB L501.1800 3.2-5.0 g/dL Low ALB 3.1 LAB L501.1950 2.2-4.2 g/dL Normal GLOB 4.0 LAB L501.2000 0.9-2.4 RATIO Low A/G 0.8 LAB L501.2200 8.5-10.1 mg/dL CA Normal 8.7 LAB L501.4100 15-37 U/L Normal AST 19 LAB L501.4305 45-117 U/L Normal ALK P 98 LAB L501.4405 16-61 U/L Normal ALT 18 LAB L501.4600 0.20-1.00 mg/dL T Normal BILI 0.30 LAB L501.5300 136-145 mmol/L Low NA 135 LAB L501.5600 3.5-5.1 mmol/L K Normal 4.1 LAB L501.5900 98-107 mmol/L CL Normal 102 LAB L501.6100 21.0-32.0 mmol/L Normal CO2 28.0 LAB L501.6200 5-15 Normal GAP 5 Performed By: #### L500.4050 #### [facility] [place], [address] RENIN/ALDOSTERONE ACTIVITY Collected: Status: F Source: [place] 12/15/2017 4:04 PM [facility] REPOSITORY TYPE CODE TESTS RESULT OUT OF RANGE REFERENCE UNITS LAB L3300.1100 0.0-30.0 ng/dL Normal ALDOSTERON 4374 15.3 Result Comment: This test was developed and its performance characteristics determined by [facility]. It has not been cleared or approved by the Food and Drug Administration. Performed at: [address] [id number] Rack Loader: Pollo Blackman MD, Phone: [phone] LAB L3400.4000 0.167-5.380 ng/mL/hr Normal RENIN,PL 2006 2.409 Result Comment: This test was developed and its performance characteristics determined by [facility]. It has not been cleared or approved by the Food and Drug Administration. Performed By: #### L3300.1050 #### [facility] (refer to report for specific site) refer to report for address and phone number INTERNAL MEDICINE Observed: 11/04/2017 Status: F Source: [place] OFFICE VISIT 1:23 PM [facility] REPOSITORY [facility] [address] [place] [address] [place] [address] OFFICE VISIT Date of Service: 11/04/17 MR#: [id number] Acct: [id number] Name: MELVIN CONCEPCION Rep #: [id number] : 1955 Provider: Solomon Melendrez MD Age/Sex: 61/M Location: [facility] Status: Signed Intake Vital Signs11/04/17 Height 6 ft 1 in Intake Visit Reasons: 1 mo fu Chief Complaint: follow-up visit Is patient in pain?: No Allergies No Known Allergies Allergy (Verified 10/21/17 09:18) Medications lisinopril 40 mg tablet 40 mg PO QDAY #90 tab 03/07/17 [Rx Confirmed 10/21/17] timolol maleate 0.25 % eye drops 1 drp OPHTHALMIC DAILY #10 ml 03/07/17 [Rx Confirmed 10/21/17] amlodipine 10 mg tablet 10 mg PO QDAY #60 tab 08/22/17 [Rx Confirmed 10/21/17] amiloride 5 mg-hydrochlorothiazide 50 mg tablet 0.5 tab PO DAILY #30 tab 10/05/17 [Rx Confirmed 10/21/17] aspirin 81 mg tablet,delayed release 81 mg PO DAILY #90 tab 10/05/17 [Rx Confirmed 10/21/17] glipizide ER 5 mg tablet, extended release 24 hr 10 mg PO DAILY@0800 #90 tab 10/05/17 [Rx Confirmed 10/21/17] insulin glargine (U-100) 100 unit/mL (3 mL) subcutaneous pen 27 unit SC QAM #15 ml 10/05/17 [Rx Confirmed 10/21/17] Metoprolol Succinate [Toprol Xl] 50 mg PO DAILY 10/14/17 [History Confirmed 10/21/17] Potassium Chloride [K-Tab ER] 20 meq PO BID 10/14/17 [History Confirmed 10/21/17] doxazosin 2 mg tablet 2 mg PO BID #60 tab 11/04/17 [Rx Confirmed 11/04/17] PFSH Medical History Arthritis (Acute) Cataracts, bilateral (Acute) Diabetes (Acute) Glaucoma (Acute) H/O: stroke (Acute) HTN (Acute) Vision problems (Acute) Surgical History h/o right carpal tunnel release (Acute) umbilical rupture (Inactive) Family History Mother Arthritis Melanoma Diabetes Hypertension Father Diabetes Hypertension Arthritis Brother Thyroid disorder Grandfather Arthritis Diabetes Cancer Grandmother Arthritis Diabetes Cancer Grandfather Arthritis Hypertension Diabetes Social History Smoking Status: Former smoker alcohol intake: current alcohol intake frequency: holidays/special occasions only Alcohol type: beer substance use type: does not use what type of physical activity do you participate in: walking frequency: 3-4 times per week duration: 45-60 minutes/day HPI HPI Chief Complaint: follow-up visit Details: MELVIN CONCEPCION, is a 61yo M who presents to the office today for follow-up of his poorly controlled hypertension. Recently started on doxazosin. Has noted some improvement however still not at goal. He is yet to follow-up with nephrology. ROS Const Constitutional: No weight change, body ache, chills, fatigue, sleep problems, fever(s), change in appetite, snoring, weakness, frequent falls, headache(s) or excessive sweating Eyes Eyes: No change in vision, eye pain, light sensitivity or blurry vision ENT ENT: No headache(s), abnormal hearing, ear pain, tinnitus, nasal congestion, sore throat or neck pain Resp Respiratory: No snoring, cough, shortness of breath or wheezing Cardio Cardiology: No excessive sweating, chest pain at rest, chest pain with exertion, shortness of breath, dyspnea on exertion, palpitations, orthopnea or lightheadedness Gastro GI: No abdominal pain, change in bowel habits, constipation, diarrhea, vomiting, nausea/dyspepsia or cramping Genitourinary Male: No painful urination, urinary incontinence, urinary frequency, urinary urgency, blood in urine, testicle pain or other Musc Musculoskeletal: No neck pain, abnormal walking, joint pain, back pain, limited range of motion, numbness or tingling Skin Skin: No redness, dry skin, itching, lesions, wounds or rash Neuro Neurology: No weakness, frequent falls, headache(s), abnormal hearing, abnormal walking, numbness, tingling, abnormal speech, dizziness or memory loss Psych Psychiatric: No change in appetite, No memory loss, No anxiety, No depression, No Thoughts of harming yourself/Others Endo Endocrine: No fatigue, excessive sweating, cold intolerance, increased thirst/drinking, heat intolerance, flushing or increased hunger Aller/Imm Allergy/Immunologic: No wheezing, itchy eyes, hives or seasonal allergy symptoms Milo/Lymp Hematologic/Lymphatic: No easy bleeding, easy bruising or enlarged lymph nodes Exam Const General: cooperative, no acute distress Orientation: alert, awake, oriented x3 [facility] Head: atraumatic, normocephalic Ears: hearing grossly normal bilaterally Resp Effort AND Inspection: normal respiratory effort, able to speak in complete sentences Auscultation: Bilateral: Clear to Auscultation Cardio Rate: regular rate Rhythm: regular rhythm Heart Sounds: S1 normal, S2 normal GI Palpation: soft, no hepatosplenomegaly Neuro General: alert, awake, oriented x3, moves all extremities, CN's II-XI intact bilaterally Extrem General: no clubbing, cyanosis or edema Psych Appearance: grossly normal Mental Status: mental status grossly normal Affect: normal affect Assessment AND Plan 1. Hypertension I10 Plan Still not optimally controlled. However in review of his chart he appears to have had some very low numbers. Repeat blood pressure here today is 160/86 mmHg. He states that at home his blood pressure ranges between 150- 170 systolic. Increase doxazosin to twice daily. Continue other medications. Follow-up in 1 month. Orders Orders: 2. Type 2 diabetes mellitus E11.9 Plan He appears to be achieving better control. Continue current management. Repeat A1c in 2 months. Last A1c in August was 9.5 down from 14. 3. Hypokalemia E87.6 Plan BMP done in September suggestive of significant hypokalemia. Patient had been off his potassium supplements. He has since resumed it and he states that he had a repeat prior to his colonoscopy and that was within normal. ( 4.1 ) CMP ordered as above. Continue current management. 4. CKD (chronic kidney disease) N18.9 Plan Stage III. Possibly from poorly controlled diabetes and hypertension. Had been referred to nephrology at his last visit, he is yet to establish. He was encouraged to. Follow-up at next visit. This note was generated with RightAnswersation software. It may contain incorrect words, spelling, and punctuation that were not noted in checking the note before signing. Plan Detail Other Medications Changed: Coding Level of Care Code Off vis,est,level 3 Diagnoses Hypertension I10 Type 2 diabetes mellitus E11.9 Hypokalemia E87.6 CKD (chronic kidney disease) N18.9 11/04/17 1323 <Electronically signed by Solomon Melendrez MD> Date Solomon Melendrez MD Cosigner Signature: Date (if applicable) CC: OPERATIVE REPORT Observed: 10/21/2017 Status: F Source: [place] 11:02 [facility] Medical Records Department [address] [place] [address] Operative Report 10/21/17 1101 MR#: [id number] Acct: [id number] Name: MELVIN CONCEPCION Rep #: [id number] : 1955 61 From: Jt Jj MD PCP: Solomon Melendrez MD Status: [facility] Location: [place] [address] Problem List (1) Screen for colon cancer Status: Acute Report of Operation Date of Procedure: 10/21/17 Pre-Operative Diagnosis: Screening for colon cancer Post-Operative Diagnosis: Normal colonoscopy Surgery/Procedure Performed:: Colonoscopy Description of Procedure: The major risks and benefits associated with the procedure were explained to the patient in detail. The patient verbalized understanding and agreement with the same. The patient was brought to the endoscopy suite. After adequate sedation was achieved, the patient was placed in the left lateral decubitus position and a digital rectal exam was performed. This examination was within normal limits. A well- lubricated colonoscope was then inserted into the rectum and advanced under direct visualization to the level of the cecum. The bowel prep was good. The cecum was identified by both visual and anatomic landmarks. A photograph was taken of the end of the cecum. The scope was then fully withdrawn while examining the color, texture, anatomy and integrity of the mucosa from the cecum to the anal canal. The findings were consistent with normal colonic mucosa. Over 6 minutes were taken to examine the colonic mucosa. Upon reaching the rectum the scope was retroflexed to examine the distal rectal vault. The scope was then straightened and was completely retrieved upon exiting the anal canal and the procedure was terminated. The patient was then transferred to the recovery room in stable condition. Recommendations for follow up: 10 years 10/21/17 1102 <Electronically signed by Jt Jj MD> Date Jt Jj MD CC: Jt Jj MD; Solomon Melendrez MD Signed HISTORY AND PHYSICAL Observed: 10/21/2017 Status: F Source: [place] EXAM 9:52 AM [facility]IT[facility] Medical Records Department [address] [place] [id number] History and Physical 10/21/17 0952 MR#: [id number] Acct: [id number] Name: MELVIN CONCEPCION Rep #: [id number] : 1955 61 From: Jt Jj MD PCP: Solomon Melendrez MD Status: [facility] Location: [place] [address] Past Medical/Surgical History - Planned Operation Planned Operative Procedure/s: cscope/open access Date of Operative Procedure: 10/21/17 Permit Signed: No S.O.S: No Is This Patient Having a Total Joint: No - Previous Hospitalizations/Surgeries HX Hospitalizations: Yes - cva 2-3 yrs ago HX of Surgeries: right carpal tunnel 2018. colonoscopy Any Problems With Anesthesia: No You/Your Family Experience Fever (Hyperthermia) With Anes: No Cholinesterase deficiency: No - Cardiovascular Hx Chest Pain within Last 2 months: No Hx of Irregular Heartbeat and/or Afib: No Hx Heart Attack: No Hx Congestive Heart Failure: No Hx Rheumatic Fever: No Hx Hypertension: Yes - controlled with med most days Hx Internal Defibrillator: No Hx Pacemaker: No Hx Cardiac Catheterization: No Hx Cardiac Surgery/Stents/Etc.: No Hx Stress Test: Yes - over 10 yrs ago HX Edema: Yes - legs prn Hx Pain in Legs when Walking/Leg Cramps: Yes - cramps at night - Respiratory Chronic Cough: No HX of Shortness of Breath: No Hoarseness: No Hx Chronic Obstructive Pulmonary Disease (COPD): No Hx Asthma: No Hx Emphysema: No Hx Sleep Apnea: No Hx Oxygen Use at Home: No Hx Respiratory Tract Infection/Cold (presently): No Do You Snore Loudly (louder than talking or can be heard): No Do You Often Feel Tired/ Fatigued/ Sleepy Dring Daytime?: Yes Has Anyone Observed You Stop Breathing During Sleep?: No Result (for STOP score): Positive Hx Smoking: Yes - quit 30 yrs ago Smoking Status: Former smoker - Gastrointestinal Hx Gastroesophageal Reflux: No - occ heartburn prn tums Hx Gastrointestinal Disorders: No Hx Gastrointestinal Bleed: No Hx Ulcer: No Hx Hiatal Hernia: No Difficulty Chewing/Swallowing: Yes - trooubles with swallowing at times Recent Onset of Swallowing Problems: No Special diet followed at home: Yes - diabetic Hx Unplanned Weight Loss of 20#: No HX Unplanned Weight Gain of 20#: No - Neurological Hx Seizures: No HX Syncope/Blackout Spells/Unconsciousness: No Hx CVA/Stroke: Yes - 2-3 yrs ago/lost perpherial vision right eye Hx Transient Ischemic Attacks (TIA): Yes Hx Multiple Sclerosis: No Hx Parkinson's Disease: No Hx Head/Neck Injury: No Hx Headaches: No Hx Back Injury/Pain: Yes - arthritis Recent Onset of Speech Difficulty: No Restless Legs: No Does patient have nerve stimulator: No Patient instructed to have device shut off: No Rep notified?: No - Blood Disorder Hx Leukemia: No Bleeding Tendencies: Yes - bruises easily Hx Deep Vein Thrombosis: No Hx High Cholesterol: No Blood Transmitted Disease: No Hx Hepatitis: No Hx Cirrhosis: No Hx Anemia: No Hx Blood Disorders: No - Genitourinary Hx Renal Disease: Yes - ckd d/t diabetes/will be seeing nephralogist Hx Dialysis: No - Musculoskeletal Hx Arthritis: Yes Hx Rheumatoid Arthritis: No Hx Gout: No Recent Onset of an Orthopedic Problem: No - Endocrine Hx Diabetes: Yes Insulin: Yes Thyroid Disease: No Hx Steroid Therapy: No - Psycho/Social Hx Substance Use: No Hx Alcohol Use: Yes - rarely Hx Anxiety: No Hx Depression: No Mental Illness: No Hx Dementia: No - Miscellaneous Hx Cancer: No Recent Exposure to Contagious Disease: No Active MRSA: No Hx of C-Diff: No Any Loose Teeth: No Allergies No Known Allergies Allergy (Verified 10/21/17 09:18) - Discharge Is Pt Admitted From a [facility], or a Long-Term: No Who Could Help: family After D/C, Where Do you Plan to Go: Return Home - From the PAT History Number of Risk Factors: 5 - Physical Exam General: Alert, Oriented x3, Cooperative Neck: No JVD Lungs: Normal air movement Cardiovascular: Regular rate, Regular Rhythm Abdomen: Soft, Non Tender, Non-Distended Vital Signs Temp Pulse Resp BP Pulse Ox 97.4 F L 55 L 16 148/85 H 98 10/21/17 09:23 10/21/17 09:23 10/21/17 09:23 10/21/17 09:23 10/21/17 09:23 Oxygen Delivery Method Room Air Weight: 200 lb 9.93 oz Body Mass Index (BMI) 26.4 Finger Stick Blood Glucose 152 Assessment/Plan 61-year-old male for screening colonoscopy 1. Patient reports he is having no abdominal pain or blood in his stool. He has no weight loss. He has a normal colonoscopy about 20 years ago. He has no family history of colon cancer. 2. I explained endoscopy in detail to the patient. I explained the risks including but not limited to stroke or heart attack with anesthesia, perforation of the GI tract, bleeding, infection. I explained that any of these could necessitate further emergency surgery. The patient understands and all questions were answered sufficiently. The patient wishes to proceed with procedure. Jt Jj MD Pager: [facility] [address] [place] [address], [address] [place] [address] Office: Surgery Risks - Colonoscopy Risks Include but are not Limited To: Risks include but are not limited to: Bleeding, perforation requiring further surgery, inability to complete colonoscopy requiring barium enema. 10/21/1752 <Electronically signed by Jt Jj MD> Date Jt Jj MD [facility] Signature: Date (if applicable) CC: Jt Jj MD; Solomon Melendrez MD Signed BEDSIDE GLUCOSE Collected: 10/21/2017 Status: F Source: [place] 9:34 AM [facility] REPOSITORY TYPE CODE TESTS RESULT OUT OF REFERENCE UNITS RANGE LAB L501.080 70-110 mg/dL High BEDSIDE GLU 223 Result Comment: MANAGEMENT OF PATIENT CARE PER NURSING PROTOCOL Performed By: #### L501.080 #### [facility] Laboratory Point of Care [address] [place] [address] POTASSIUM Collected: 10/19/2017 Status: F Source: [place] 12:[address] [facility] REPOSITORY TYPE CODE TESTS RESULT OUT OF RANGE REFERENCE UNITS LAB [id number](L 3.5-5.1 mEq/L OINC) Normal Potassium Lvl 4.1 Performed By: #### [id number] #### [facility] [address] [place] [address] ORTHOPEDIC VISIT Observed: 10/14/2017 Status: F Source: [place] REPORT 10:32 AM [facility] REPOSITORY [facility] [address] [place] [address] OFFICE VISIT Date of Service: 10/13/17 MR#: [id number] Acct: [id number] Name: MELVIN CONCEPCION Rep #: [id number] : 1955 Provider: TIANA Calvo Age/Sex: 61/M Location: [facility] [place] Status: Signed Intake Intake Visit Reasons: RIGHT WRIST Is patient in pain?: No Allergies No Known Allergies Allergy (Verified 10/13/17 14:55) Medications lisinopril 40 mg tablet 40 mg PO QDAY #90 tab 03/07/17 [Rx Confirmed 10/05/17] timolol maleate 0.25 % eye drops 1 drp OPHTHALMIC DAILY #10 ml 03/07/17 [Rx Confirmed 10/05/17] potassium chloride ER 20 mEq tablet,extended release 40 meq PO BID #120 tab 04/07/17 [Rx Confirmed 10/05/17] amlodipine 10 mg tablet 10 mg PO QDAY #60 tab 08/22/17 [Rx Confirmed 10/05/17] amiloride 5 mg-hydrochlorothiazide 50 mg tablet 0.5 tab PO DAILY #30 tab 10/05/17 [Rx Confirmed 10/05/17] aspirin 81 mg tablet,delayed release 81 mg PO DAILY #90 tab 10/05/17 [Rx Confirmed 10/05/17] doxazosin 2 mg tablet 2 mg PO DAILY #30 tab 10/05/17 [Rx Confirmed 10/05/17] glipizide ER 5 mg tablet, extended release 24 hr 10 mg PO DAILY@0800 #90 tab 10/05/17 [Rx Confirmed 10/05/17] insulin glargine (U-100) 100 unit/mL (3 mL) subcutaneous pen 27 unit SC QAM #15 ml 10/05/17 [Rx Confirmed 10/05/17] metoprolol succinate ER 100 mg tablet,extended release 24 hr 50 mg PO .daily #90 tab 10/05/17 [Rx Confirmed 10/05/17] PFSH Medical History Arthritis (Acute) Cataracts, bilateral (Acute) Diabetes (Acute) Glaucoma (Acute) H/O: stroke (Acute) HTN (Acute) Vision problems (Acute) Surgical History h/o right carpal tunnel release (Acute) umbilical rupture (Inactive) Family History Mother Arthritis Melanoma Diabetes Hypertension Father Diabetes Hypertension Arthritis Brother Thyroid disorder Grandfather Arthritis Diabetes Cancer Grandmother Arthritis Diabetes Cancer Grandfather Arthritis Hypertension Diabetes Social History Smoking Status: Former smoker alcohol intake: current alcohol intake frequency: holidays/special occasions only Alcohol type: beer substance use type: does not use what type of physical activity do you participate in: walking frequency: 3-4 times per week duration: 45-60 minutes/day HPI RIGHT WRIST: Details: MELVIN CONCEPCION is a 61 year old M here today for s/p right CTR dos 08/31/17. He states that he is doing well and is improving. 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 Patient has numbness into his fingertips but it is improving. Patient states that his pain and numbness have improved since his surgery. His incision is fully healed. ROS Const Reports system reviewed and no additional complaints, except as docu Eyes Reports system reviewed and no additional complaints, except as docu ENT Reports system reviewed and no additional complaints, except as docu Card Reports system reviewed and no additional complaints, except as docu Resp Reports system reviewed and no additional complaints, except as docu GI Reports system reviewed and no additional complaints, except as docu Reports system reviewed and no additional complaints, except as docu Skin/Breast Reports system reviewed and no additional complaints, except as docu Neuro Yes system reviewed and no additional complaints, except as docu Psych Reports system reviewed and no additional complaints, except as docu Endo Reports system reviewed and no additional complaints, except as docu Ortho Exam Right Wrist/Hand Date of Surgery: 08/31/17 Skin/Wound: Yes healed, No Swelling, No Ecchymosis Contralateral Normal: Yes Right Wrist: Yes ROM-Extension 0-60, ROM-Flexion 0-80, ROM- Pronation 0-80 and ROM-Supination 0-90; no Durken's Test Motor: EPL: 5, FDP-2: 5, 1st Dorsal Interosseous: 5, APB: 5 Sensation: Radial: I, Ulnar: I, Median: I WRIST: Patient has FROM and strength today. Incision is healing great. HE has been using this without any limitation. Left Wrist/Hand Skin/Wound: No Swelling, No Ecchymosis Assessment AND Plan Problems 1. Carpal tunnel syndrome of right wrist G56.01 2. History of carpal tunnel release Z98.890 3. Orthopedic aftercare Z47.89 Plan PAtient is using his hand without any restrictions or limitations. He has only minimal discomfort if he is using a lot. The numbness and tingling is improving. He has negative Durkins and tinels. F/u in 6 weeks for 3 month check Plan Detail Follow Up 6 Weeks Coding Level of Care Code Global Post Op Diagnoses Carpal tunnel syndrome of right wrist G56.01 History of carpal tunnel release Z98.890 Orthopedic aftercare Z47.89 10/14/17 1032 <Electronically signed by Zeferino Wayt PA> Date Zeferino Hernandezer Signature: Date (if applicable) CC: INTERNAL MEDICINE Observed: 10/06/2017 Status: F Source: [facility] OFFICE VISIT 6:09 PM [facility] Internal Medicine [address] [place] [address] OFFICE VISIT Date of Service: 10/05/17 MR#: [id number] Acct: [id number] Name: MELVIN CONCEPCION Rep #: [id number] : 1955 Provider: Solomon Melendrez MD Age/Sex: 61/M Location: [facility] [place] Status: Signed Intake Vital Signs10/05/17 Height 6 ft 1 in 10/05/17 Weight: 205 lb 10/05/17 Body Mass Index (BMI) 27.0 10/05/17 Blood Pressure 166/82 Intake Visit Reasons: FU APPT Chief Complaint: FU appt . Is patient in pain?: No Allergies No Known Allergies Allergy (Verified 10/05/17 17:08) Medications lisinopril 40 mg tablet 40 mg PO QDAY #90 tab 03/07/17 [Rx Confirmed 10/05/17] timolol maleate 0.25 % eye drops 1 drp OPHTHALMIC DAILY #10 ml 03/07/17 [Rx Confirmed 10/05/17] potassium chloride ER 20 mEq tablet,extended release 40 meq PO BID #120 tab 04/07/17 [Rx Confirmed 10/05/17] aspirin 325 mg tablet 325 mg PO DAILY 06/15/17 [History Confirmed 10/05/17] amlodipine 10 mg tablet 10 mg PO QDAY #60 tab 08/22/17 [Rx Confirmed 10/05/17] amiloride 5 mg-hydrochlorothiazide 50 mg tablet 0.5 tab PO DAILY #30 tab 10/05/17 [Rx Confirmed 10/05/17] doxazosin 2 mg tablet 2 mg PO DAILY #30 tab 10/05/17 [Rx Confirmed 10/05/17] glipizide ER 5 mg tablet, extended release 24 hr 10 mg PO DAILY@0800 #90 tab 10/05/17 [Rx Confirmed 10/05/17] insulin glargine (U-100) 100 unit/mL (3 mL) subcutaneous pen 27 unit SC QAM #15 ml 10/05/17 [Rx Confirmed 10/05/17] metoprolol succinate ER 100 mg tablet,extended release 24 hr 50 mg PO .daily #90 tab 10/05/17 [Rx Confirmed 10/05/17] PFSH Medical History Arthritis (Acute) Cataracts, bilateral (Acute) Diabetes (Acute) Glaucoma (Acute) H/O: stroke (Acute) HTN (Acute) Vision problems (Acute) Surgical History h/o right carpal tunnel release (Acute) umbilical rupture (Inactive) Family History Mother Arthritis Melanoma Diabetes Hypertension Father Diabetes Hypertension Arthritis Brother Thyroid disorder Grandfather Arthritis Diabetes Cancer Grandmother Arthritis Diabetes Cancer Grandfather Arthritis Hypertension Diabetes Social History Smoking Status: Former smoker alcohol intake: current alcohol intake frequency: holidays/special occasions only Alcohol type: beer substance use type: does not use what type of physical activity do you participate in: walking frequency: 3-4 times per week duration: 45-60 minutes/day HPI HPI Chief Complaint: FU appt . Details: MELVIN CONCEPCION, is a 61yo M who presents to the office today for follow-up of his chronic medical conditions. He has no acute complaints at this time. He recently had carpal tunnel surgery and has recovered well. Blood pressure at this time is still not optimally controlled. Blood pressure in office is 166/82. He reports compliance with his medications. He also reports better blood sugar control. It is of note that he had been off his medications for a prolonged period of time. Initial A1c in resumption was 14 however the last A1c did come down to 9.5. HÉCTOR done due to complaints of bilateral lower extremity cramps/ ? claudication and cold sensation in his lower extremities with possibility of peripheral arterial disease. ROS Const Constitutional: No chills, fatigue, fever(s), frequent falls, malaise, weakness, sleep problems or change in appetite Eyes Eyes: No blurry vision, change in vision, double vision, discharge or visual disturbances ENT ENT: No abnormal hearing, ear pain, ear pressure, tinnitus or dizziness/vertigo Resp Respiratory: No cough, shortness of breath or wheezing Cardio Cardiology: No chest pain at rest, chest pain with exertion, shortness of breath, dyspnea on exertion, generalized swelling, irregular heart rhythm, lightheadedness, orthopnea, fast heart rate or palpitations Gastro GI: No abdominal pain, change in bowel habits, constipation, diarrhea, nausea/dyspepsia or vomiting Genitourinary Male: No difficulty urinating, burning urination, painful urination, urinary incontinence, urinary frequency, urinary urgency, urinary hesitancy, urinary retention, blood in urine, Frequent nighttime urination/ nocturia, sexual problems, testicle lump or testicle pain Musc Musculoskeletal: No joint pain, back pain, joint swelling, limited range of motion, numbness or tingling Skin Skin: No change in skin color, itching, rash or wounds Breast Breast: No breast lump or breast pain Neuro Neurology: No frequent falls, weakness, abnormal hearing, numbness, tingling, unsteady gait/balance, dizziness, loss of vision, memory loss or visual disturbances Psych Psychiatric: No memory loss, No anxiety, No change in appetite, No depression, No Thoughts of harming yourself/Others Endo Endocrine: No fatigue, heat intolerance, increased thirst/drinking, increased hunger or increased urination Aller/Imm Allergy/Immunologic: No wheezing, itchy eyes or seasonal allergy symptoms Milo/Lymp Hematologic/Lymphatic: No easy bleeding, easy bruising or enlarged lymph nodes Exam Const General: cooperative, no acute distress Orientation: alert, awake, oriented x3 [facility] Head: atraumatic, normocephalic Ears: hearing grossly normal bilaterally Resp Effort AND Inspection: normal respiratory effort, able to speak in complete sentences Auscultation: Bilateral: Clear to Auscultation Cardio Rate: regular rate Rhythm: regular rhythm Heart Sounds: S1 normal, S2 normal GI Palpation: soft, no hepatosplenomegaly Neuro General: alert, awake, oriented x3, moves all extremities, CN's II-XI intact bilaterally Extrem General: no clubbing, cyanosis or edema Psych Appearance: grossly normal Mental Status: mental status grossly normal Affect: normal affect Assessment AND Plan 1. Hypokalemia E87.6 Plan Chronic and possibly from renal loss. ??? Diuretic use vs hyperaldosteronism. Stop chlorthalidone. Start amiloride hydrochlorothiazide. I also spoke with the patient and advised him to take his potassium as instructed at 40 mg twice daily. Repeat BMP in 1 week. Orders Orders: Referrals: 2. Hypertension I10 Plan Not optimally controlled. We will add doxazosin 2 mg daily. Reduce metoprolol succinate to 50 mg daily due to bradycardia however, asymptomatic. Advised to keep a blood pressure log and follow-up in 1 month. Orders Orders: Referrals: 3. Type 2 diabetes mellitus E11.9 Plan Appears to be achieving better control. A1c down by 4 points. Continue current management and lifestyle modification. Repeat A1c in 2 months. 4. Right leg pain M79.604 Plan Recent HÉCTOR with possibility of peripheral arterial disease. Risk factor modifications discussed. Referred to vascular surgery. This note was generated with Motosmart[employer] dictation software. It may contain incorrect words, spelling, and punctuation that were not noted in checking the note before signing. Plan Detail Other Orders Referrals: Other Medications New: Changed: Refilled: Discontinued: Coding Level of Care Code Off vis,est,level 4 Diagnoses Hypokalemia E87.6 Hypertension I10 Type 2 diabetes mellitus E11.9 Right leg pain M79.604 10/06/17 1809 <Electronically signed by Solomon Melendrez MD> Date Solomon Melendrez MD Cosigner Signature: Date (if applicable) CC: BASIC METABOLIC Collected: 10/05/2017 Status: F Source: [facility] PROFILE (BMP) 3:51 PM [facility] [place] REPOS[facility] TYPE CODE TESTS RESULT OUT OF RANGE REFERENCE UNITS LAB L501.0100 74-106 mg/dL High GLU 186 Result Comment: Fasting Glucose result greater than or equal to 126 mg/dL suggests DIABETES MELLITUS per A.D.A. criteria. Please note revised GLUCOSE reference range effective 2017. LAB L501.1000 7-18 mg/dL High BUN 38 LAB L501.1100 0.70-1.30 mg/dL High CREAT,SERUM 2.12 Result Comment: The validity of the calculated GFR AND GFRAA in patients over 70 years has not been determined. Clinical correlation is essential. LAB L501.1110 >60 mL/min Low EST GFR 34 Result Comment: Non- GFR Calc LAB L501.1115 >60 mL/min Low EST GFR - AA 41 Result Comment: GFR Calc LAB L501.1300 10-20 RATIO Normal BUN/CRE 17.9 LAB L501.2200 8.5-10.1 mg/dL CA Normal 8.8 LAB L501.5300 136-145 mmol/L NA Normal 140 LAB L501.5600 3.5-5.1 mmol/L Low K alert 2.7 Result Comment: Critical Result(s) Called at: 17:54:14 10/05/2017 by: Yamileth FREDERICKER LAB L501.5900 98-107 mmol/L Normal CL 101 LAB L501.6100 21.0-32.0 mmol/L Normal CO2 27.0 LAB L501.6200 5-15 Normal GAP 12 Performed By: #### L500.2500, L502.0250 #### [facility] [address] [place], [address] MICROALB:CREAT Collected: 10/05/2017 Status: F Source: [facility] [facility] 3:51 PM [facility] REPOSITORY TYPE CODE TESTS RESULT OUT OF RANGE REFERENCE UNITS LAB L501.1200 NO RANGE EST. mg/dL Normal UR CREAT 149.00 LAB L502.0500 NO RANGE EST. mg/L Normal 1200.0 MICROALBUMIN ,UR LAB L502.0600 <30 mg/g CRE mg/g CRE High 805.4 MALB:CREAT Performed By: #### L500.2500, L502.0250 #### [facility] [address] [place], [address] ORTHOPEDIC VISIT Observed: 09/16/2017 Status: F Source: [facility] REPORT 12:11 PM [facility] REPOSITORY [facility] [address] [facility] [address] [place] [address] OFFICE VISIT Date of Service: 09/15/17 MR#: [id number] Acct: [id number] Name: MELVIN CONCEPCION Rep #: [id number] : 1955 Provider: Colette Carnes DO Age/Sex: 61/M Location: [facility] [place] Status: Signed Intake Intake Visit Reasons: RIGHT WRIST Is patient in pain?: No Allergies No Known Allergies Allergy (Verified 09/15/17 14:25) Medications chlorthalidone 25 mg tablet 25 mg PO QDAY #90 tab 03/07/17 [Rx Confirmed 09/15/17] glipizide ER 5 mg tablet, extended release 24 hr 10 mg PO DAILY@0800 #90 tab 03/07/17 [Rx Confirmed 09/15/17] lisinopril 40 mg tablet 40 mg PO QDAY #90 tab 03/07/17 [Rx Confirmed 09/15/17] metoprolol succinate ER 100 mg tablet,extended release 24 hr 100 mg PO .daily #90 tab 03/07/17 [Rx Confirmed 09/15/17] timolol maleate 0.25 % eye drops 1 drp OPHTHALMIC DAILY #10 ml 03/07/17 [Rx Confirmed 09/15/17] potassium chloride ER 20 mEq tablet,extended release 40 meq PO BID #120 tab 04/07/17 [Rx Confirmed 09/15/17] aspirin 325 mg tablet 325 mg PO DAILY 06/15/17 [History Confirmed 09/15/17] hydralazine 50 mg tablet 75 mg PO Q8H #90 tab 06/15/17 [Rx Confirmed 09/15/17] amlodipine 10 mg tablet 10 mg PO QDAY #60 tab 08/22/17 [Rx Confirmed 09/15/17] Insulin Glargine,Hum.rec.anlog [Cris Cheema U-100] 27 unit SC QAM 08/24/17 [History Confirmed 09/15/17] PFSH Medical History Arthritis (Acute) Cataracts, bilateral (Acute) Diabetes (Acute) Glaucoma (Acute) H/O: stroke (Acute) HTN (Acute) Vision problems (Acute) Surgical History h/o right carpal tunnel release (Acute) umbilical rupture (Inactive) Family History Mother Arthritis Melanoma Diabetes Hypertension Father Diabetes Hypertension Arthritis Brother Thyroid disorder Grandfather Arthritis Diabetes Cancer Grandmother Arthritis Diabetes Cancer Grandfather Arthritis Hypertension Diabetes Social History Smoking Status: Former smoker alcohol intake: current alcohol intake frequency: holidays/special occasions only Alcohol type: beer substance use type: does not use what type of physical activity do you participate in: walking frequency: 3-4 times per week duration: 45-60 minutes/day HPI RIGHT WRIST: Details: MELVIN CONCEPCION is a 61 year old M here today for s/p right carpal tunnel release dos 08/31/17. He states that he is doing well. He continues to have numbness into his fingers but it has improved. He no longer has numbness in the morning. Patient denies any redness or drainage. Patient notes that he fell about a week ago, and his incision opened a little and he had some bleeding. Patient wore the splint following surgery for about 4 days then he removed it. Patient has kept his incision clean and dry. He denies any fevers or chills. ROS Const Reports system reviewed and no additional complaints, except as docu Eyes Reports system reviewed and no additional complaints, except as docu ENT Reports system reviewed and no additional complaints, except as docu Card Reports system reviewed and no additional complaints, except as docu Resp Reports system reviewed and no additional complaints, except as docu GI Reports system reviewed and no additional complaints, except as docu Reports system reviewed and no additional complaints, except as docu Skin/Breast Reports system reviewed and no additional complaints, except as docu Neuro Yes system reviewed and no additional complaints, except as docu Psych Reports system reviewed and no additional complaints, except as docu Endo Reports system reviewed and no additional complaints, except as docu Assessment AND Plan 1. Orthopedic aftercare Z47.89 Plan Personally reviewed the surgical images if available, the surgery procedure and reviewed the post op care instructions. Monitor for signs of infection, redness, warmth, swelling in excess, drainage, opening of incision site/sites, and/or fever. Explained that some of the n/t is from the swelling, he has motor strength but needs to continue to work on using it normally. He has a Duputreyens contracture and can see Dr Araujo for that. Follow up in a month or sooner if pain, swelling, numbness or associated symptoms, or concerns develop. All questions answered. Patient in agreement of plan. Coding Level of Care Code Global Post Op Diagnoses Orthopedic aftercare Z47.89 09/16/17 1211 <Electronically signed by Colette Carnes DO> Date Colette Carnes DO Cosigner Signature: Date (if applicable) CC: LOWER EXT ARTERIAL Observed: 09/14/2017 Status: F Source: [facility] 8:36 AM [facility] Cardiovascular Services [address] [place] [address] 09/14/17 0834 MR#: [id number] Acct: [id number] Name: MELVIN CONCEPCION Rep #: [id number] : 1955 61 From: Hosea Avila MD Attending Dr: Solomon Melendrez MD Status: REG CLI Ordering Dr: Date: 09/14/17 Location: [facility] Sex: M C Admitted: Arterial Study - Arterial Study Arterial Study: Date of scan: 09/05/[address] Avila History: Patient with previous smoking hypertension and diabetes. Interpretation: Right lower extremity shows more of a monophasic flow noted at the ankle the posterior tibial unable to get a ABIs its noncompressible. More of a biphasic flow noted of the dorsalis pedis with an HÉCTOR 1.15. Next Left lower extremity both vessels are noncompressible and unable to get an HÉCTOR at the ankle. Duplex that shows more of a triphasic waveform noted the posterior tibial and a biphasic of the DP. Impression: 1. Evidence of some arterial occlusive disease with noncompressibility noted at the ankle and biphasic flow of the dorsalis pedis with the HÉCTOR 1.15 that may be slightly falsely elevated. Further evaluation as clinically warranted. 2. Unable to get an HÉCTOR consistent with medial calcinosis. There is triphasic flow noted the posterior tibial. Further evaluation as clinically warranted 09/14/17 0836 <Electronically signed by Hosea Avila MD> Date Hosea Avila MD CC: Solomon Melendrez MD Date Dictated: 09/14/17833 Date Transcribed: 09/14/17833 Rib Puller: JAKE Signed OPERATIVE REPORT Observed: 09/07/2017 Status: F Source: [place] 12:54 PM [facility] Medical Records Department [address] [place] [address] Operative Report 08/31/17 1124 MR#: [id number] Acct: [id number] Name: MELVIN CONCEPCION Rep #: [id number] : 1955 61 From: Colette Carnes DO PCP: Solomon Melendrez MD Status: [facility] Location: [facility] [place] Report of Operation Date of Procedure: 08/31/17 Pre-Operative Diagnosis: left carpal tunnel syndrome Post-Operative Diagnosis: same Surgery/Procedure Performed:: left carpal tunnel release Type of Anesthesia:: Block,Opelika Anesthesiologist: Akash Parkinson Drains: wtt- 15 min Estimated Blood Loss (mL): none Fluids Replaced: 1000ml lr Description of Procedure: Preoperative note Patient is a 61 year old male patient with nerve conduction study confirming carpal tunnel syndrome. Patient failed conservative treatment for her carpal tunnel elected proceed with left carpal tunnel release. Risks benefits and alternatives surgery discussed with patient. Risks including but not limited to blood loss, blood clot, infection, neurovascular injury, failure procedure, loss of life and loss of limb. Patient is aware like proceed with left carpal tunnel release. Operative note Patient seen and examined preoperative holding area. Left hand was marked. History and physical and consent reviewed. Patient was brought to the operating room placed supine on the operating table. Sign in, anesthesia, antibiotics were administered. Left upper extremity was prepped and draped after Isabel block was initiated. All bony prominences well-padded SCDs placed on bilateral lower extremities. We marked out our incisions for our carpal tunnel release at the intersection of Hillary's line in the fourth ray flexed. We extended about a centimeter and a half. Timeout was performed. We then checked ensure that the Opelika block was working with pickups which it was. We then used a 15 blade to make a skin incision. We then dissected down tenotomy syllable of the transverse carpal ligament. We then used a new 15 blade cut through the transverse carpal ligament down to the level of the median nerve. We then further released the median nerve the combination of the 15 blade and tenotomies. The nerve was grayish in color and adherent to the transverse carpal ligament volarly. We released the transverse carpal ligament distally to the fat pad and then proximally under standard technique. We then palpated to ensure that we released all of the transverse carpal ligament which we did. We irrigated the incision with copious amounts of sterile saline. All bleeders were coagulated. The incision was closed with interrupted 4-0 nylon stitches. Tourniquet was deflated for total working time of 14 minutes. Patient tolerated procedure well there were no complications. Patient transferred to recovery room in stable condition. Postoperative note Hospital pharmacy has prescription Leave dressing clean dry and intact Follow-up in 2 weeks Call with concerns This note was generated with Motosmart[employer] dictation software. It may contain incorrect words, spelling, and punctuation that were not noted in checking the note before signing. 09/07/17 1254 <Electronically signed by Colette Carnes DO> Date Colette Carnes DO CC: Colette Carnes DO; Solomon Melendrez MD Signed BEDSIDE GLUCOSE Collected: 08/31/2017 Status: F Source: [facility] 12:01 PM [facility] REPOSITORY TYPE CODE TESTS RESULT OUT OF REFERENCE UNITS RANGE LAB L501.080 70-110 mg/dL High BEDSIDE GLU 152 Result Comment: MANAGEMENT OF PATIENT CARE PER NURSING PROTOCOL Performed By: #### L501.080 #### [facility] Laboratory Point of Care [address] [place] [address] DISCHARGE INSTRUCTION Observed: 08/31/2017 Status: F Source: [facility] 11:24 AM [facility] Medical Records Department [address] [place] [address] Instructions for Home/Discharge Instructions 08/31/17 1124 MR#: [id number] Acct: [id number] Name: MELVIN CONCEPCION Rep #: [id number] : 1955 61 From: Colette Carnes DO PCP: Solomon Melendrez MD Status: REG [facility] Discharge Diet: No Restrictions - use hand as tolerated, keep clean and dry, follow up in 2 weeks for dressing change and suture removal Discharge Activity: May Not Drive May shower in (days): 1 Ice area for (Minutes): 20 - Every hour while awake. Weight Bearing Status: Weight bearing as tolerated Keep extremity elevated above heart level: Operative Extremity Call your doctor if your incision/area has: Continuous Slow Oozing, Sudden Increased Bleeding, Increased Pain/ Swelling, Increased Redness, Foul Smelling Discharge Call your doctor if you observe: Fever of 101 or Higher, Coldness, Increased Pain, Numbness or Tingling, Change in Color, Calf discomfort Allergies/Adverse Reactions: Allergies No Known Allergies Allergy (Verified 08/31/17 08:31) Medications to take at Discharge chlorthalidone 25 mg tablet 25 mg PO QDAY #90 tab 03/07/17 glipizide ER 5 mg tablet, extended release 24 hr 10 mg PO DAILY@0800 #90 tab 03/07/17 lisinopril 40 mg tablet 40 mg PO QDAY #90 tab 03/07/17 metoprolol succinate ER 100 mg tablet,extended release 24 hr 100 mg PO .daily #90 tab 03/07/17 timolol maleate 0.25 % eye drops 1 drp OPHTHALMIC DAILY #10 ml 03/07/17 potassium chloride ER 20 mEq tablet,extended release 40 meq PO BID #120 tab 04/07/17 aspirin 325 mg tablet 325 mg PO DAILY 06/15/17 hydralazine 50 mg tablet 75 mg PO Q8H #90 tab 06/15/17 amlodipine 10 mg tablet 10 mg PO QDAY #60 tab 08/22/17 Insulin Glargine,Hum.rec.anlog [Cris Cheema U-100] 27 unit TN QA 08/24/17 Primary Care Physician: Solomon Melendrez MD [Primary Care Provider] - Test Results: Test results from this visit will be discussed in further detail at your follow-up appointment, if applicable. Please Follow Up With: Colette Carnes DO - [phone] 08/31/17 1124 <Electronically signed by Colette Carnes DO> Date Colette Carnes DO CC: Solomon Melendrez MD BEDSIDE GLUCOSE Collected: 08/31/2017 Status: F Source: [place] 8:52 AM [facility] REPOSITORY TYPE CODE TESTS RESULT OUT OF REFERENCE UNITS RANGE LAB L501.080 70-110 mg/dL High BEDSIDE GLU 130 Result Comment: MANAGEMENT OF PATIENT CARE PER NURSING PROTOCOL Performed By: #### L501.080 #### [facility] Laboratory Point of Care [address] [place] [address] INTERNAL MEDICINE Observed: 08/23/2017 Status: F Source: [facility] OFFICE VISIT 4:39 PM [facility] REPOSITORY [facility] [address] [place] [address] [place] [address] OFFICE VISIT Date of Service: 08/22/17 MR#: [id number] Acct: [id number] Name: MELVIN CONCEPCION Rep #: [id number] : 1955 Provider: Solomon Melendrez MD Age/Sex: 61/M Location: [facility] [place] Status: Signed Intake Vital Signs08/22/17 Height 6 ft 1 in Intake Visit Reasons: 6 WK FU Chief Complaint: Follow - Up. Is patient in pain?: No Allergies No Known Allergies Allergy (Verified 08/02/17 13:58) Medications chlorthalidone 25 mg tablet 25 mg PO QDAY #90 tab 03/07/17 [Rx Confirmed 08/02/17] glipizide ER 5 mg tablet, extended release 24 hr 10 mg PO DAILY@0800 #90 tab 03/07/17 [Rx Confirmed 08/02/17] lisinopril 40 mg tablet 40 mg PO QDAY #90 tab 03/07/17 [Rx Confirmed 08/02/17] metoprolol succinate ER 100 mg tablet,extended release 24 hr 100 mg PO .daily #90 tab 03/07/17 [Rx Confirmed 08/02/17] timolol maleate 0.25 % eye drops 1 drp OPHTHALMIC DAILY #10 ml 03/07/17 [Rx Confirmed 08/02/17] potassium chloride ER 20 mEq tablet,extended release 40 meq PO BID #120 tab 04/07/17 [Rx Confirmed 08/02/17] aspirin 325 mg tablet 325 mg PO BID 06/15/17 [History Confirmed 08/02/17] hydralazine 50 mg tablet 75 mg PO Q8H #90 tab 06/15/17 [Rx Confirmed 08/22/17] insulin glargine (U-100) 100 unit/mL (3 mL) subcutaneous pen 24 unit SC QAM #15 ml 06/15/17 [Rx Confirmed 08/02/17] amlodipine 10 mg tablet 10 mg PO QDAY #60 tab 08/22/17 [Rx Confirmed 08/22/17] PFSH Medical History Arthritis (Acute) Cataracts, bilateral (Acute) Diabetes (Acute) Glaucoma (Acute) H/O: stroke (Acute) HTN (Acute) Vision problems (Acute) Surgical History umbilical rupture (Inactive) Family History Mother Arthritis Melanoma Diabetes Hypertension Father Diabetes Hypertension Arthritis Brother Thyroid disorder Grandfather Arthritis Diabetes Cancer Grandmother Arthritis Diabetes Cancer Grandfather Arthritis Hypertension Diabetes Social History Smoking Status: Former smoker alcohol intake: current alcohol intake frequency: holidays/special occasions only Alcohol type: beer substance use type: does not use what type of physical activity do you participate in: walking frequency: 3-4 times per week duration: 45-60 minutes/day HPI HPI Chief Complaint: Follow - Up. Details: MELVIN CONCEPCION, is a 61yo M who presents to the office today for follow-up of his chronic medical conditions. He also has some acute complaints. He reports burning and cramping pain in his right lower extremity which typically occurs at night. He also states that his digits occasionally feel numb/cold. He denies any known history of peripheral vascular disease and does not currently smoke. Fasting blood sugars average about 120 however postprandial blood sugars are still states was significantly elevated. His A1c dropped from about 14 to 9. ROS Const Constitutional: No weight change, body ache, chills, sleep problems, fever(s), change in appetite, snoring, weakness, frequent falls, headache(s) or excessive sweating Eyes Eyes: No change in vision, eye pain, light sensitivity or blurry vision ENT ENT: No headache(s), abnormal hearing, ear pain, tinnitus, nasal congestion, sore throat or neck pain Resp Respiratory: No snoring, cough, shortness of breath or wheezing Cardio Cardiology: No excessive sweating, chest pain at rest, chest pain with exertion, shortness of breath, dyspnea on exertion, palpitations, orthopnea or lightheadedness Gastro GI: No abdominal pain, change in bowel habits, constipation, diarrhea, vomiting, nausea/dyspepsia or cramping Genitourinary Male: No painful urination, urinary incontinence, urinary frequency, urinary urgency, blood in urine, testicle pain or other Musc Musculoskeletal: Positive for joint pain; no neck pain, abnormal walking, back pain, limited range of motion, numbness, tingling or muscle weakness Skin Skin: No redness, dry skin, itching, lesions, wounds or rash Neuro Neurology: No weakness, frequent falls, headache(s), abnormal hearing, abnormal walking, numbness, tingling, abnormal speech, dizziness or memory loss Psych Psychiatric: No change in appetite, No memory loss, No anxiety, No depression, No Thoughts of harming yourself/Others Endo Endocrine: No excessive sweating, cold intolerance, increased thirst/drinking, heat intolerance, flushing or increased hunger Aller/Imm Allergy/Immunologic: No wheezing, itchy eyes, hives or seasonal allergy symptoms Milo/Lymp Hematologic/Lymphatic: No easy bleeding, easy bruising or enlarged lymph nodes Exam Const General: cooperative, no acute distress Orientation: alert, awake, oriented x3 HENMT Head: atraumatic, normocephalic Ears: hearing grossly normal bilaterally Resp Effort AND Inspection: normal respiratory effort, able to speak in complete sentences Auscultation: Bilateral: Clear to Auscultation Cardio Rate: regular rate Rhythm: regular rhythm Heart Sounds: S1 normal, S2 normal GI Palpation: soft, no hepatosplenomegaly Musc Musculoskeletal: No muscle weakness Neuro General: alert, awake, oriented x3, moves all extremities, CN's II-XI intact bilaterally Extrem General: no clubbing, cyanosis or edema Psych Appearance: grossly normal Mental Status: mental status grossly normal Affect: normal affect Assessment AND Plan 1. Type 2 diabetes mellitus E11.9 Plan Achieving better control however, still not optimal. Increase Lantus by 3 units every 48-72 hours not to exceed a total increment of 9 units. Continue dietary modification. Continue glipizide. Advised to follow-up with podiatry as soon as possible. Continue follow-up with ophthalmology. Follow-up here in 1 month with blood sugar log. Orders Orders: 2. Right leg pain M79.604 Plan Progressively worsening. Said to be worse at night and described as cramping in/cold sensation in his toes/digits. No known history of vascular disease. HÉCTOR ordered. Follow-up with podiatry for diabetic foot management. 3. Hypertension I10 Plan Still not optimally controlled. Repeat blood pressure 150/80 mmHg. Tachycardia blood pressure of 130/80 mmHg. Hold hydralazine. Start amlodipine 10 mg daily. Continue other medications. Continue dietary modifications. Follow-up in 1 month. 4. Hypokalemia E87.6 Plan Resolved. Currently on 40 mg twice daily of potassium. Last potassium level of 3.6. BMP in 1 month. This note was generated with [employer]osmart[employer] dictation software. It may contain incorrect words, spelling, and punctuation that were not noted in checking the note before signing. Plan Detail Other Orders Orders: Other Medications New: On Hold: Follow Up 1 Month Coding Level of Care Code Off vis,est,level 4 Diagnoses Type 2 diabetes mellitus E11.9 Right leg pain M79.604 Hypertension I10 Hypokalemia E87.6 08/23/17 1639 <Electronically signed by Solomon Melendrez MD> Date Solomon Melendrez MD Cosigner Signature: Date (if applicable) CC: BASIC METABOLIC Collected: 08/19/2017 Status: F Source: [facility]ANG PROFILE (BMP) 4:33 PM [facility] REPOSITORY TYPE CODE TESTS RESULT OUT OF RANGE REFERENCE UNITS LAB L501.0100 74-106 mg/dL Low GLU 63 Result Comment: Please note revised GLUCOSE reference range effective 2017. LAB L501.1000 7-18 mg/dL High BUN 40 LAB L501.1100 0.70-1.30 mg/dL High CREAT,SERUM 1.94 Result Comment: The validity of the calculated GFR AND GFRAA in patients over 70 years has not been determined. Clinical correlation is essential. LAB L501.1110 >60 mL/min Low EST GFR 37 Result Comment: Non- GFR Calc LAB L501.1115 >60 mL/min Low EST GFR - AA 45 Result Comment: GFR Calc LAB L501.1300 10-20 RATIO High BUN/CRE 20.6 LAB L501.2200 8.5-10.1 mg/dL CA Normal 8.9 LAB L501.5300 136-145 mmol/L NA Normal 143 LAB L501.5600 3.5-5.1 mmol/L K Normal 3.6 LAB L501.5900 98-107 mmol/L High CL 108 LAB L501.6100 21.0-32.0 mmol/L Normal CO2 26.0 LAB L501.6200 5-15 Normal GAP 9 Performed By: #### L500.2500, L501.9985 #### [facility] [address] [place], [place], [address] HEMOGLOBIN A1C Collected: 08/19/2017 Status: F Source: TANG 4:33 PM [facility] REPOSITORY TYPE CODE TESTS RESULT OUT OF RANGE REFERENCE UNITS LAB L501.9985 4.2-6.3 % High HGB A1C 9.5 Performed By: #### L500.2500, L501.9985 #### [facility] [address] [place], [place], [address] ORTHOPEDIC VISIT Observed: 08/04/2017 Status: F Source: TANG REPORT 1:59 PM [facility] REPOSITORY [facility] [address] [facility] [address] [place] [address] OFFICE VISIT Date of Service: 08/02/17 MR#: [id number] Acct: [id number] Name: MELVIN CONCEPCION Rep #: [id number] : 1955 Provider: Colette Carnes DO Age/Sex: 61/M Location: [facility] [place] Status: Signed Intake Intake Visit Reasons: RIGHT WRIST Allergies No Known Allergies Allergy (Verified 08/02/17 13:58) Medications chlorthalidone 25 mg tablet 25 mg PO QDAY #90 tab 03/07/17 [Rx Confirmed 08/02/17] glipizide ER 5 mg tablet, extended release 24 hr 10 mg PO DAILY@0800 #90 tab 03/07/17 [Rx Confirmed 08/02/17] lisinopril 40 mg tablet 40 mg PO QDAY #90 tab 03/07/17 [Rx Confirmed 08/02/17] metoprolol succinate ER 100 mg tablet,extended release 24 hr 100 mg PO .daily #90 tab 03/07/17 [Rx Confirmed 08/02/17] timolol maleate 0.25 % eye drops 1 drp OPHTHALMIC DAILY #10 ml 03/07/17 [Rx Confirmed 08/02/17] potassium chloride ER 20 mEq tablet,extended release 40 meq PO BID #120 tab 04/07/17 [Rx Confirmed 08/02/17] aspirin 325 mg tablet 325 mg PO BID 06/15/17 [History Confirmed 08/02/17] hydralazine 50 mg tablet 75 mg PO Q8H #90 tab 06/15/17 [Rx Confirmed 08/02/17] insulin glargine (U-100) 100 unit/mL (3 mL) subcutaneous pen 24 unit SC QAM #15 ml 06/15/17 [Rx Confirmed 08/02/17] PFSH Medical History Arthritis (Acute) Cataracts, bilateral (Acute) Diabetes (Acute) Glaucoma (Acute) H/O: stroke (Acute) HTN (Acute) Vision problems (Acute) Surgical History umbilical rupture (Inactive) Family History Mother Arthritis Melanoma Diabetes Hypertension Father Diabetes Hypertension Arthritis Brother Thyroid disorder Grandfather Arthritis Diabetes Cancer Grandmother Arthritis Diabetes Cancer Grandfather Arthritis Hypertension Diabetes Social History Smoking Status: Former smoker alcohol intake: current alcohol intake frequency: holidays/special occasions only Alcohol type: beer substance use type: does not use what type of physical activity do you participate in: walking frequency: 3-4 times per week duration: 45-60 minutes/day HPI RIGHT WRIST: Details: MELVIN CONCEPCION is a 61 year old M here today for to review his EMG study of his right upper extremity. Patient notes that he continues to have pain into his wrist and forearm. He has numbness of his entire hand. He has weakness and is dropping items more frequently. He complains of a burning sensation into his fingers and puts them under cold water to try to help. Patient has a wrist brace which he wears at times but it causes him pain into the palm of his hand. His EMG is here for review. ROS Const Reports system reviewed and no additional complaints, except as docu Eyes Reports system reviewed and no additional complaints, except as docu ENT Reports system reviewed and no additional complaints, except as docu Card Reports system reviewed and no additional complaints, except as docu Resp Reports system reviewed and no additional complaints, except as docu GI Reports system reviewed and no additional complaints, except as docu Reports system reviewed and no additional complaints, except as docu Musc Reports muscle weakness, Reports numbness, Reports radiating pain into limb Skin/Breast Reports system reviewed and no additional complaints, except as docu Neuro Yes system reviewed and no additional complaints, except as docu, Yes numbness Psych Reports system reviewed and no additional complaints, except as docu Endo Reports system reviewed and no additional complaints, except as docu Assessment AND Plan Plan Reivewed the EMG results and explained that he has ulnar neuropathy, options are do nothing or surgery for release. Explained that the results do not show exactly where it is coming from so we will consult with neuro prior to surgery. We can release the carpal tunnel on the left 6wks after the right. Reviewed the pre-operative plans with the patient. Risks and benefits of the procedure were fully explained, including but not limited to infection, neurovascular injury, continued pain, arthritis, stiffness, need for further surgery, re-injury, DVT, PE, general risks of anesthesia, and loss of limb or life. The patient understands all the risks and does wish to proceed with written consent. Follow up in [] or sooner if pain, swelling, numbness or associated symptoms, or concerns develop. All questions answered. Patient in agreement of plan. Coding Level of Care Code Off vis,est,level 4 08/04/17 5171 <Electronically signed by Colette Carnes DO> Date Colette Carnes DO Cosigner Signature: Date (if applicable) CC: NCS AND/OR EMG Observed: 07/06/2017 Status: F Source: TANG PATIENT 2:26 PM [facility] Pulmonary Services/Neurology [address] [place] [address] MR#: [id number] Acct: [id number] Name: MELVIN CONCEPCION Rep #: [id number] : 1955 61 From: Delia Benson MD Referring Dr: Colette Carnes DO Status: REG CLI Ordering Dr: Date: Location: [facility] Sex: M C NCS and/or EMG Patient Report Ordering Doctor: Colette Carnes DATE OF SERVICE: 07/06/17 Melvin Concepcion is a 61-year-old male who presents for electrodiagnostic testing of the upper limbs. He has numbness and tingling in both hands. He also reports a history of poorly controlled diabetes. Electrodiagnostic findings: Median motor nerve demonstrates prolonged distal latency bilaterally with normal amplitude and reduced conduction velocity. Normal right ulnar motor response. Left ulnar motor nerve demonstrates prolonged distal latency with reduced amplitude and reduced conduction velocity. No significant drop in conduction across the elbow. Prolonged median and ulnar F waves. Prolonged median sensory distal latency is noted absent left ulnar sensory response on needle EMG 1+ fibrillations noted in the right first dorsal interosseous. Electrodiagnostic impression: This is an abnormal study in the upper limbs. 1. Findings demonstrate bilateral median mononeuropathy, consistent with a moderate to advanced bilateral carpal tunnel syndrome 2. Advanced left-sided ulnar neuropathy is noted, without evidence of cubital tunnel syndrome. 3. Consider correlating with electrodiagnostic testing of the lower limbs to evaluate for peripheral polyneuropathy. If there are any further questions, please not hesitate to contact me 07/06/17 142 <Electronically signed by Delia Benson MD> Date Delia Benson MD CC: Colette Carnes DO; Delia Benson; Solomon Melendrez MD Date Dictated: 07/06/171421 Date Transcribed: 07/06/171421 Rib Puller: WILLIAM Signed INTERNAL MEDICINE Observed: 06/20/2017 Status: F Source: TANG OFFICE VISIT 1:14 PM [facility] Internal Medicine [facility] [place] [address] OFFICE VISIT Date of Service: 06/15/17 MR#: [id number] Acct: [id number] Name: MELVIN CONCEPCION Rep #: [id number] : 1955 Provider: Solomon Melendrez MD Age/Sex: 61/M Location: [facility] [place] Status: Signed Intake Vital Signs06/15/17 Height 6 ft 1 in 06/15/17 Weight: 213 lb 06/15/17 Body Mass Index (BMI) 28.0 06/15/17 Blood Pressure 165/89 Intake Visit Reasons: 6 WK FU, PT R/S FROM 05/18/17 Chief Complaint: 6 wk FU, BP recheck Is patient in pain?: No Allergies No Known Allergies Allergy (Verified 06/15/17 16:38) Medications chlorthalidone 25 mg tablet 25 mg PO QDAY #90 tab 03/07/17 [Rx Confirmed 06/15/17] glipizide ER 5 mg tablet, extended release 24 hr 10 mg PO DAILY@0800 #90 tab 03/07/17 [Rx Confirmed 06/15/17] lisinopril 40 mg tablet 40 mg PO QDAY #90 tab 03/07/17 [Rx Confirmed 06/15/17] metoprolol succinate ER 100 mg tablet,extended release 24 hr 100 mg PO .daily #90 tab 03/07/17 [Rx Confirmed 06/15/17] timolol maleate 0.25 % eye drops 1 drp OPHTHALMIC DAILY #10 ml 03/07/17 [Rx Confirmed 06/15/17] potassium chloride ER 20 mEq tablet,extended release 40 meq PO BID #120 tab 04/07/17 [Rx Confirmed 06/15/17] aspirin 325 mg tablet 325 mg PO BID 06/15/17 [History Confirmed 06/15/17] hydralazine 50 mg tablet 75 mg PO Q8H #90 tab 06/15/17 [Rx Confirmed 06/15/17] insulin glargine (U-100) 100 unit/mL (3 mL) subcutaneous pen 24 unit SC QAM #15 ml 06/15/17 [Rx Confirmed 06/15/17] PFSH Medical History Arthritis (Acute) Cataracts, bilateral (Acute) Diabetes (Acute) Glaucoma (Acute) H/O: stroke (Acute) HTN (Acute) Vision problems (Acute) Surgical History umbilical rupture (Inactive) Family History Mother Arthritis Melanoma Diabetes Hypertension Father Diabetes Hypertension Arthritis Brother Thyroid disorder Grandfather Arthritis Diabetes Cancer Grandmother Arthritis Diabetes Cancer Grandfather Arthritis Hypertension Diabetes Social History Smoking Status: Former smoker alcohol intake: current alcohol intake frequency: holidays/special occasions only Alcohol type: beer substance use type: does not use what type of physical activity do you participate in: walking frequency: 3-4 times per week duration: 45-60 minutes/day HPI HPI Chief Complaint: 6 wk FU, BP recheck Details: MELVIN CONCEPCION, is a 61yo M who presents to the office today for follow-up of his blood pressure and diabetes. He has no acute complaints at this time. Blood pressure is still not optimally controlled. Blood pressure in office is 165/89 mmHg. He reports fasting blood sugars in the 130s. He reports compliance with his medication and diet ROS Const Constitutional: No chills, fatigue, fever(s), frequent falls, malaise, weakness, sleep problems or change in appetite Eyes Eyes: No blurry vision, change in vision, double vision, discharge or visual disturbances ENT ENT: No abnormal hearing, ear pain, ear pressure, tinnitus or dizziness/vertigo Resp Respiratory: No cough, shortness of breath or wheezing Cardio Cardiology: No chest pain at rest, chest pain with exertion, shortness of breath, dyspnea on exertion, generalized swelling, irregular heart rhythm, lightheadedness, orthopnea, fast heart rate or palpitations Gastro GI: No abdominal pain, change in bowel habits, constipation, diarrhea, nausea/dyspepsia or vomiting Genitourinary Male: No difficulty urinating, burning urination, painful urination, urinary incontinence, urinary frequency, urinary urgency, urinary hesitancy, urinary retention, blood in urine, Frequent nighttime urination/ nocturia, sexual problems, testicle lump or testicle pain Musc Musculoskeletal: Positive for tingling (Rt hand); no joint pain, back pain, joint swelling, limited range of motion, muscle weakness or numbness Skin Skin: No change in skin color, itching, rash or wounds Breast Breast: No breast lump or breast pain Neuro Neurology: Positive for tingling (Rt hand); no frequent falls, weakness, abnormal hearing, numbness, unsteady gait/balance, dizziness, loss of vision, memory loss or visual disturbances Psych Psychiatric: No memory loss, No anxiety, No change in appetite, No depression, No Thoughts of harming yourself/Others Endo Endocrine: No fatigue, heat intolerance, increased thirst/drinking, increased hunger or increased urination Aller/Imm Allergy/Immunologic: No wheezing, itchy eyes or seasonal allergy symptoms Milo/Lymp Hematologic/Lymphatic: No easy bleeding, easy bruising or enlarged lymph nodes Exam Const General: cooperative, no acute distress Orientation: alert, awake, oriented x3 [facility] Head: atraumatic, normocephalic Ears: hearing grossly normal bilaterally Resp Effort AND Inspection: normal respiratory effort, able to speak in complete sentences Auscultation: Bilateral: Clear to Auscultation Cardio Rate: regular rate Rhythm: regular rhythm Heart Sounds: S1 normal, S2 normal GI Palpation: soft, no hepatosplenomegaly Musc Musculoskeletal: No muscle weakness Neuro General: alert, awake, oriented x3, moves all extremities, CN's II-XI intact bilaterally Extrem General: no clubbing, cyanosis or edema Psych Appearance: grossly normal Mental Status: mental status grossly normal Affect: normal affect Assessment AND Plan 1. Hypertension I10 Plan Still suboptimal control. Had blood pressure reading of 165/89 mmHg. Repeat blood pressure 160/90 mmHg. Patient reports compliance with his medications. Typed/optimal blood pressure reading essential due to his microalbuminuria/proteinuria. Increase hydralazine to 75 mg 3 times daily. Dietary and lifestyle modifications again discussed. Continue other medications. Follow-up in 6 weeks. If blood pressure still not optimally controlled, will probably add amlodipine. Orders Orders: 2. Type 2 diabetes mellitus E11.9 Plan Achieving better however still not optimal. Fasting blood sugars of about 130/140. Increase insulin glargine to 24 units every morning. Continue dietary modifications. Follow-up in 6 weeks. A1c in 4 weeks. Orders Orders: 3. Hypokalemia E87.6 Plan Resolved. BMP with a potassium of 3.6. Continue current medications. Follow-up. This note was generated with [employer] software. It may contain incorrect words, spelling, and punctuation that were not noted in checking the note before signing. Orders Orders: Plan Detail Other Medications Changed: From: hydralazine Take half tablet 3 times a day for week50 mg PO Q8H one, then resume whole tablet Discontinued: Follow Up 6 Weeks Coding Level of Care Code Off vis,est,level 3 Diagnoses Hypertension I10 Type 2 diabetes mellitus E11.9 Hypokalemia E87.6 06/20/17 1314 <Electronically signed by Solomon Melendrez MD> Date Solomon Melendrez MD Cosigner Signature: Date (if applicable) CC: COMPREHENSIVE METABOLIC Collected: 06/08/2017 Status: F Source: TANG MEDINA 3:16 PM [facility] REPOSITORY TYPE CODE TESTS RESULT OUT OF RANGE REFERENCE UNITS LAB L501.0100 74-106 mg/dL High GLU 203 Result Comment: Glucose result greater than or equal to 200 mg/dL suggests DIABETES MELLITUS per A.D.A. criteria. Please note revised GLUCOSE reference range effective 2017. LAB L501.1000 7-18 mg/dL High BUN 37 LAB L501.1100 0.70-1.30 mg/dL High CREAT,SERUM 1.82 Result Comment: The validity of the calculated GFR AND GFRAA in patients over 70 years has not been determined. Clinical correlation is essential. LAB L501.1110 >60 mL/min Low EST GFR 40 Result Comment: Non- GFR Calc LAB L501.1115 >60 mL/min Low EST GFR - AA 49 Result Comment: GFR Calc LAB L501.1300 10-20 RATIO High BUN/CRE 20.3 LAB L501.1500 6.4-8.2 g/dL T Normal PROT 7.4 LAB L501.1800 3.2-5.0 g/dL Normal ALB 3.3 LAB L501.1950 2.2-4.2 g/dL Normal GLOB 4.1 LAB L501.2000 0.9-2.4 RATIO Low A/G 0.8 LAB L501.2200 8.5-10.1 mg/dL CA Normal 9.1 LAB L501.4100 15-37 U/L Low AST 10 LAB L501.4305 45-117 U/L Normal ALK P 84 LAB L501.4405 16-61 U/L Normal ALT 16 LAB L501.4600 0.20-1.00 mg/dL T Normal BILI 0.70 LAB L501.5300 136-145 mmol/L NA Normal 140 LAB L501.5600 3.5-5.1 mmol/L K Normal 3.6 LAB L501.5900 98-107 mmol/L CL Normal 103 LAB L501.6100 21.0-32.0 mmol/L Normal CO2 30.0 LAB L501.6200 5-15 Normal GAP 7 Performed By: #### L500.4050, L500.4100 #### [facility] [address] [place], [address] LIPID PROFILE Collected: 06/08/2017 Status: F Source: TANG 3:16 PM [facility] REPOSITORY TYPE CODE TESTS RESULT OUT OF RANGE REFERENCE UNITS LAB L501.4900 200 mg/dL Normal CHOL 130 Result Comment: <200 mg/dL Desirable 200-240 mg/dL Borderline >240 mg/dL High Risk LAB L501.5000 mg/dL Normal TRIG 147 Result Comment: The drugs N-Acetylcysteine and Metamizole may falsely depress this assay. Serum Triglycerides Reference Interval Normal <150 mg/dL Borderline high 150 - 199 mg/dL High 200 - 499 mg/dL Very High > or = 500 mg/dL LAB L501.6400 mg/dL Low HDL 37 Result Comment: The drugs N-Acetylcysteine and Metamizole may falsely depress this assay. Reference Range HDL <40 mg/dL Low HDL Cholesterol HDL >or= 60 mg/dL High HDL Cholesterol LAB L501.6500 0-130 mg/dL Normal LDL 64 LAB L501.6600 5-40 mg/dL Normal VLDL 29 Performed By: #### L500.4050, L500.4100 #### [facility] [address] [place], [place], [address] ORTHOPEDIC VISIT Observed: 04/21/2017 Status: F Source: [place] REPORT 11:53 AM [facility] REPOSITORY [facility] [address] [place] [address] OFFICE VISIT Date of Service: 04/19/17 MR#: [id number] Acct: [id number] Name: MELVIN CONCEPCION Rep #: [id number] : 1955 Provider: Colette Carnes DO Age/Sex: 61/M Location: [facility] [place] Status: Signed Intake Vital Signs04/19/17 Height 6 ft 1 in 04/19/17 Weight: 200 lb 04/19/17 Body Mass Index (BMI) 26.4 Intake Visit Reasons: RIGHT WRIST Chief Complaint: BP recheck Is patient in pain?: Yes Pain scale (1-10): 9 Allergies No Known Allergies Allergy (Verified 04/19/17 15:21) Medications aspirin 81 mg tablet,delayed release 81 mg PO BID tab 03/07/17 [History Confirmed 04/19/17] chlorthalidone 25 mg tablet 25 mg PO QDAY #90 tab 03/07/17 [Rx Confirmed 04/19/17] glipizide ER 5 mg tablet, extended release 24 hr 10 mg PO DAILY@0800 #90 tab 03/07/17 [Rx Confirmed 04/19/17] insulin glargine (U-100) 100 unit/mL (3 mL) subcutaneous pen 20 unit SC QAM #15 ml 03/07/17 [Rx Confirmed 04/19/17] lisinopril 40 mg tablet 40 mg PO QDAY #90 tab 03/07/17 [Rx Confirmed 04/19/17] metoprolol succinate ER 100 mg tablet,extended release 24 hr 100 mg PO .daily #90 tab 03/07/17 [Rx Confirmed 04/19/17] timolol maleate 0.25 % eye drops 1 drp OPHTHALMIC DAILY #10 ml 03/07/17 [Rx Confirmed 04/19/17] hydralazine 50 mg tablet 50 mg PO Q8H #90 tab 03/18/17 [Rx Confirmed 04/19/17] potassium chloride ER 20 mEq tablet,extended release 40 meq PO BID #120 tab 04/07/17 [Rx Confirmed 04/19/17] PFSH Medical History Arthritis (Acute) Cataracts, bilateral (Acute) Diabetes (Acute) Glaucoma (Acute) H/O: stroke (Acute) HTN (Acute) Vision problems (Acute) Surgical History umbilical rupture (Inactive) Family History Mother Arthritis Melanoma Diabetes Hypertension Father Diabetes Hypertension Arthritis Brother Thyroid disorder Grandfather Arthritis Diabetes Cancer Grandmother Arthritis Diabetes Cancer Grandfather Arthritis Hypertension Diabetes Social History Smoking Status: Former smoker alcohol intake: current alcohol intake frequency: holidays/special occasions only Alcohol type: beer substance use type: does not use what type of physical activity do you participate in: walking frequency: 3-4 times per week duration: 45-60 minutes/day HPI RIGHT WRIST: Details: MELVIN CONCEPCION is a 61 year old M here today for right hand. He complains of intermittent sharp/shooting pain towards bottom of palm, into the palm with anterior wrist pain. Constant numbness/tingling of fingers. Intermittent swelling in fingers. He has seen Demetrio Bae who recommended a brace that he has been wearing. No prior x-ray. No injection. ROS Const Reports system reviewed and no additional complaints, except as docu Eyes Reports system reviewed and no additional complaints, except as docu ENT Reports system reviewed and no additional complaints, except as docu Card Reports system reviewed and no additional complaints, except as docu Resp Reports system reviewed and no additional complaints, except as docu GI Reports system reviewed and no additional complaints, except as docu Reports system reviewed and no additional complaints, except as docu Musc Reports joint pain, Reports joint swelling, Reports numbness, Reports tingling Skin/Breast Reports system reviewed and no additional complaints, except as docu Neuro Yes numbness, Yes tingling Psych Reports system reviewed and no additional complaints, except as docu Endo Reports system reviewed and no additional complaints, except as docu Milo/Lymph Reports system reviewed and no additional complaints, except as docu Aller/Immun Reports system reviewed and no additional complaints, except as docu Ortho Exam Right Wrist/Hand Right Wrist: Yes Durken's Test Sensation: Ulnar: D, Median: D Left Wrist/Hand Sensation: Ulnar: D WRIST: thenar atrophy Assessment AND Plan 1. 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 Is unable to cross his fingers has got ulnar neuropathy of bilateral upper extremities needs to be evaluated further with a nerve study to see what level is being compressed. He had an injury to the left hand that may contribute to it but he is having considerable weakness of his dorsal interossei and is unable to cross his fingers on his left hand at all. Patient will follow-up after nerve conduction study. Discussed all of the above patient aware and agreement of plan. All questions answered. Obtained X-rays of patient's right hand. Personally reviewed x-rays. There is no obvious fracture, dislocation, or lucency noted. His xrays show [facility] arthritis. Follow up in [] or sooner if pain, swelling, numbness or associated symptoms, or concerns develop. All questions answered. Patient in agreement of plan. Orders Orders: 2. Carpal tunnel syndrome of right wrist G56.01 Orders Orders: Plan Detail Other Orders Orders: Coding Level of Care Code Off vis,new,level 3 Diagnoses Ulnar neuropathy of both upper extremities G56.23 Carpal tunnel syndrome of right wrist G56.01 04/21/17 1153 <Electronically signed by Colette Carnes DO> Date Colette Carnes DO Cosigner Signature: Date (if applicable) CC: Solomon Melendrez MD HAND MIN 3 VIEWS Observed: 04/19/2017 Status: F Source: [place] 3:41 PM [facility] Imaging Services [address] [place] [address] Hand Min 3 Views MR#: [id number] Acct: [id number] Name: MELVIN CONCEPCION Rep #: [id number] : 1955 M 61 From: Ben Rice MD PCP: Solomon Melendrez MD Status: REG CLI Study: Hand Min 3 Views Date of Exam: 04/19/17 Exam# [id number] Ordering Dr: Colette Carnes DO STUDY: X-RAY - RIGHT HAND REASON FOR EXAM: Linear growth on palmar surface for one year. TECHNIQUE: 3 view(s) of the hand. COMPARISON: None. FINDINGS: Normal radiocarpal articulation. Normal distal radioulnar joint. Normal visualized carpal bones. Normal carpal articulations There are marginal osteophytes and joint space narrowing of the carpometacarpal articulation of the thumb. Normal second through fifth carpometacarpal joints. Normal metacarpi. Normal metacarpophalangeal joint of the thumb. Normal interphalangeal joint of the thumb. Normal proximal and distal phalanges of the thumb. Normal metacarpophalangeal joints of the second through fifth fingers. There are small marginal osteophytes and mild joint space narrowing of the second and fifth distal interphalangeal joints. Normal phalanges of the second through fifth fingers. There is vascular calcification. RAD/Hand Min 3 Views IMPRESSION: Arthrosis of the first carpometacarpal joint, and second and fifth distal interphalangeal joints. Electronically Signed: Ben Rice MD at 16:20 EST Tel , Service support , CC: Colette Carnes DO; Solomon Melendrez MD Rib Puller: Signed INTERNAL MEDICINE Observed: 04/06/2017 Status: F Source: [place] OFFICE VISIT 5:02 PM [facility] Internal Medicine [address] [place] [address] OFFICE VISIT Date of Service: 04/06/17 MR#: [id number] Acct: [id number] Name: MELVIN CONCEPCION Rep #: [id number] : 1955 Provider: Demetrio Bae NP Age/Sex: 61/M Location: [facility] [place] Status: Signed Intake Vital Signs04/06/17 Blood Pressure 162/80 04/06/17 Height 6 ft 1 in Intake Visit Reasons: F/U Chief Complaint: BP recheck Is patient in pain?: Yes (right hand) Pain scale (1-10): 8 Allergies No Known Allergies Allergy (Verified 04/10/15 11:01) Medications aspirin 81 mg tablet,delayed release 81 mg PO BID tab 03/07/17 [History Confirmed 03/07/17] chlorthalidone 25 mg tablet 25 mg PO QDAY #90 tab 03/07/17 [Rx Confirmed 03/07/17] glipizide ER 5 mg tablet, extended release 24 hr 10 mg PO DAILY@0800 #90 tab 03/07/17 [Rx Confirmed 03/07/17] insulin glargine (U-100) 100 unit/mL (3 mL) subcutaneous pen 20 unit SC QAM #15 ml 03/07/17 [Rx Confirmed 03/07/17] lisinopril 40 mg tablet 40 mg PO QDAY #90 tab 03/07/17 [Rx Confirmed 03/07/17] metoprolol succinate ER 100 mg tablet,extended release 24 hr 100 mg PO .daily #90 tab 03/07/17 [Rx Confirmed 03/07/17] timolol maleate 0.25 % eye drops 1 drp OPHTHALMIC DAILY #10 ml 03/07/17 [Rx Confirmed 03/07/17] arm brace See Dose Instructions .ROUTE .MEDSUPPLY #1 ea 03/18/17 [Rx Confirmed 03/18/17] hydralazine 50 mg tablet 50 mg PO Q8H #90 tab 03/18/17 [Rx Confirmed 03/18/17] potassium chloride ER 20 mEq tablet,extended release 20 meq PO BID #60 tab 03/23/17 [Rx] blood pressure monitor kit See Dose Instructions .ROUTE .MEDSUPPLY #1 ea 04/06/17 [Rx Confirmed 04/06/17] [facility] Medical History Arthritis (Acute) Cataracts, bilateral (Acute) Diabetes (Acute) Glaucoma (Acute) H/O: stroke (Acute) HTN (Acute) Vision problems (Acute) Family History Mother Arthritis Melanoma Diabetes Hypertension Father Diabetes Hypertension Arthritis Brother Thyroid disorder Grandfather Arthritis Diabetes Cancer Grandmother Arthritis Diabetes Cancer Grandfather Arthritis Hypertension Diabetes Social History Smoking Status: Former smoker alcohol intake: current alcohol intake frequency: holidays/special occasions only Alcohol type: beer substance use type: does not use what type of physical activity do you participate in: walking frequency: 3-4 times per week duration: 45-60 minutes/day HPI HPI Chief Complaint: BP recheck Details: MELVIN CONCEPCION, is a 61 M who presents to the office today for for a follow-up of his hypertension. He has a past medical history which is significant for that of type 2 diabetes mellitus uncontrolled, glaucoma, uncontrolled hypertension, carpal tunnel syndrome right wrist, and Dupuytren's contracture of right hand. The patient states that since resuming his antihypertensives and starting the hydralazine, he has been doing okay. He states that he gets occasional orthostatic symptoms when he gets out of bed first thing in the morning and that he gets somewhat lightheaded, however, this is improving. He states that his average blood pressures have been ranging 160s over 80s at home. He requests a new BP cuff. He denies any change in vision or chest pain. He notes that the pain in his right hand continues even with using the wrist splint yet for his carpal tunnel syndrome and is requesting a referral to ortho. He has been routinely checking his blood sugars which have been averaging 120s. Denies hypo or hyperglycemic episodes. The patient otherwise denies any fever, chills, nausea, vomiting, shortness of breath, chest pain or pressure, palpitations, orthopnea, lower extremity edema, syncope or presyncopal episodes. ROS Const Constitutional: No weight change, body ache, chills, fatigue, sleep problems, fever(s), change in appetite, snoring, weakness, frequent falls, headache(s) or excessive sweating Eyes Eyes: No change in vision, eye pain, light sensitivity or blurry vision ENT ENT: Positive for nasal congestion; no headache(s), abnormal hearing, ear pain, tinnitus, sore throat or neck pain Resp Respiratory: No snoring, cough, shortness of breath or wheezing Cardio Cardiology: No excessive sweating, chest pain at rest, chest pain with exertion, shortness of breath, dyspnea on exertion, palpitations, orthopnea or lightheadedness Gastro GI: Positive for heartburn; no abdominal pain, change in bowel habits, constipation, diarrhea, vomiting, nausea/dyspepsia or cramping Musc Musculoskeletal: Positive for numbness and tingling (right hand); no neck pain, abnormal walking, joint pain, back pain or limited range of motion Skin Skin: No redness, dry skin, itching, lesions, wounds or rash Neuro Neurology: Positive for numbness, tingling (right hand) and other (swelling in feet and burning sensation in lower legs); no weakness, frequent falls, headache(s), abnormal hearing, abnormal walking, abnormal speech, dizziness or memory loss Psych Psychiatric: No change in appetite, No memory loss, No anxiety, No depression, No Thoughts of harming yourself/Others Endo Endocrine: No fatigue, excessive sweating, cold intolerance, increased thirst/drinking, heat intolerance, flushing or increased hunger Aller/Imm Allergy/Immunologic: No wheezing, itchy eyes, hives or seasonal allergy symptoms Milo/Lymp Hematologic/Lymphatic: No easy bleeding, easy bruising or enlarged lymph nodes Exam Const General: cooperative, no acute distress, well developed Orientation: alert, awake, oriented x3 HENMT Head: atraumatic, normocephalic, normal to inspection Ears: hearing grossly normal bilaterally Resp Effort AND Inspection: normal respiratory effort, able to speak in complete sentences Auscultation: Bilateral: Clear to Auscultation Cardio Rate: regular rate Rhythm: regular rhythm Heart Sounds: S1 normal, S2 normal GI Palpation: no hepatosplenomegaly, soft Neuro General: alert, awake, CN's II-XI intact bilaterally, moves all extremities Extrem General: no clubbing, cyanosis or edema Other: Dupuytren's contracture present right fourth digit palmar surface, positive tinels and phalen Psych Appearance: grossly normal Mental Status: mental status grossly normal Affect: normal affect Assessment AND Plan 1. Type 2 diabetes mellitus E11.9 Plan Stable per patient's self-report, requested that he fax us a log of the blood sugars. His most recent A1c was 14, however this has been since being off of his medications for 4-5 months. Since restarting he states that his average has have been 120. Denies any symptoms of hypo-or hyperglycemia. Will recheck an A1c in 3 months. Orders Orders: 2. HTN (hypertension) I10 Plan Hypertension: stable on current medications, will not make any adjustments at this time. Will continue with current medication regimen, risk factor reduction, and lifestyle modifications. Discussed dietary changes that should be considered which include reducing the amount of sodium intake. Did discuss him continuing the keep a log of his blood pressures and he will fax us a copy in 2 weeks, if continues to be elevated may increase his hydralazine to 75 mg 3 times daily. 3. Hypokalemia E87.6 Plan Recheck BMP today, he was previously corrected with potassium supplementation. Orders Orders: 4. Dupuytren's contracture of right hand M72.0 Plan Referred to plastic surgery 5. Carpal tunnel syndrome of right wrist G56.01 Plan . Patient has been using his wrist splint occasionally without much relief, per request he was referred to Ulysses Mckeon disclaimer Orders Referrals: Plan Detail Other Medications New: blood pressure monitor kit (Blood Pressure KiCheck blood pressure daily for hypertension I t) 10 Follow Up 6 weeks or sooner if needed Coding Level of Care Code Off vis,est,level 3 Diagnoses Type 2 diabetes mellitus E11.9 HTN (hypertension) I10 Hypokalemia E87.6 Dupuytren's contracture of right hand M72.0 Carpal tunnel syndrome of right wrist G56.01 04/06/17 1702 <Electronically signed by Demetrio HUGGINS> Date Demetrio HUGGINS Cosigner Signature: Date (if applicable) CC: BASIC METABOLIC Collected: 04/06/2017 Status: F Source: [place] PROFILE (BMP) 4:52 PM [facility] TYPE CODE TESTS RESULT OUT OF RANGE REFERENCE UNITS LAB L501.0100 74-106 mg/dL High GLU 134 Result Comment: Fasting Glucose result greater than or equal to 126 mg/dL suggests DIABETES MELLITUS per A.D.A. criteria. Please note revised GLUCOSE reference range effective 2017. LAB L501.1000 7-18 mg/dL High BUN 30 LAB L501.1100 0.70-1.30 mg/dL High CREAT,SERUM 1.81 Result Comment: The validity of the calculated GFR AND GFRAA in patients over 70 years has not been determined. Clinical correlation is essential. LAB L501.1110 >60 mL/min Low EST GFR 40 Result Comment: Non- GFR Calc LAB L501.1115 >60 mL/min Low EST GFR - AA 49 Result Comment: GFR Calc LAB L501.1300 10-20 RATIO Normal BUN/CRE 16.6 LAB L501.2200 8.5-10.1 mg/dL CA Normal 9.1 LAB L501.5300 136-145 mmol/L NA Normal 138 LAB L501.5600 3.5-5.1 mmol/L Low K 3.1 LAB L501.5900 98-107 mmol/L CL Normal 99 LAB L501.6100 21.0-32.0 mmol/L Normal CO2 32.0 LAB L501.6200 5-15 Normal GAP 7 Performed By: #### L500.2500 #### [facility] [address] [place], [address] INTERNAL MEDICINE Observed: 03/18/2017 Status: F Source: [place] OFFICE VISIT 4:39 PM [facility] [address] [place] [address] OFFICE VISIT Date of Service: 03/18/17 MR#: [id number] Acct: [id number] Name: MELVIN CONCEPCION Rep #: [id number] : 1955 Provider: Demetrio Bae NP Age/Sex: 61/M Location: [facility] [place] Status: Signed Intake Vital Signs03/18/17 Blood Pressure 170/98 03/18/17 Blood Pressure Location Lt brachial 03/18/17 Height 6 ft 1 in Intake Visit Reasons: f/u Chief Complaint: BP recheck Is patient in pain?: Yes (right hand) Pain scale (1-10): 7 Allergies No Known Allergies Allergy (Verified 04/10/15 11:01) Medications aspirin 81 mg tablet,delayed release 81 mg PO BID tab 03/07/17 [History Confirmed 03/07/17] chlorthalidone 25 mg tablet 25 mg PO QDAY #90 tab 03/07/17 [Rx Confirmed 03/07/17] glipizide ER 5 mg tablet, extended release 24 hr 10 mg PO DAILY@0800 #90 tab 03/07/17 [Rx Confirmed 03/07/17] insulin glargine 100 unit/mL (3 mL) subcutaneous pen 20 unit SC QAM #15 ml 03/07/17 [Rx Confirmed 03/07/17] lisinopril 40 mg tablet 40 mg PO QDAY #90 tab 03/07/17 [Rx Confirmed 03/07/17] metoprolol succinate ER 100 mg tablet,extended release 24 hr 100 mg PO .daily #90 tab 03/07/17 [Rx Confirmed 03/07/17] timolol maleate 0.25 % eye drops 1 drp OPHTHALMIC DAILY #10 ml 03/07/17 [Rx Confirmed 03/07/17] arm brace See Dose Instructions .ROUTE .MEDSUPPLY #1 ea 03/18/17 [Rx Confirmed 03/18/17] hydralazine 50 mg tablet 50 mg PO Q8H #90 tab 03/18/17 [Rx Confirmed 03/18/17] PFSH Medical History Arthritis (Acute) Cataracts, bilateral (Acute) Diabetes (Acute) Glaucoma (Acute) H/O: stroke (Acute) HTN (Acute) Vision problems (Acute) Family History Mother Arthritis Melanoma Diabetes Hypertension Father Diabetes Hypertension Arthritis Brother Thyroid disorder Grandfather Arthritis Diabetes Cancer Grandmother Arthritis Diabetes Cancer Grandfather Arthritis Hypertension Diabetes Social History Smoking Status: Former smoker alcohol intake: current alcohol intake frequency: holidays/special occasions only Alcohol type: beer substance use type: does not use what type of physical activity do you participate in: walking frequency: 3-4 times per week duration: 45-60 minutes/day HPI f/u: Chief Complaint: BP recheck Details: MELVIN CONCEPCION, is a 61 M who presents to the office today for a follow-up of his hypertension. He has a past medical history which is significant for that of type 2 diabetes mellitus, glaucoma, uncontrolled hypertension, carpal tunnel syndrome right breast, and Dupuytren's contracture of right hand. The patient states that since resuming his antihypertensives, he has been doing okay. He states that he gets occasional orthostatic symptoms when he gets out of bed first thing in the morning and that he gets somewhat lightheaded. He states that his average blood pressures have been ranging 180s-190s over 110s at home. He denies any change in vision or chest pain. He does state that he followed up with his death claim clerk who changed his prescription to his glasses because of his vision has been getting worse. He notes that the pain in his right hand has been increasing and that he has not picked up a wrist splint yet for his carpal tunnel syndrome. He does not routinely check his blood sugars. The patient otherwise denies any fever, chills, nausea, vomiting, shortness of breath, chest pain or pressure, palpitations, orthopnea, lower extremity edema, syncope or presyncopal episodes. ROS Const Constitutional: No weight change, body ache, chills, fatigue, sleep problems, fever(s), change in appetite, snoring, weakness, frequent falls, headache(s) or excessive sweating Eyes Eyes: No change in vision, eye pain, light sensitivity or blurry vision ENT ENT: Positive for tinnitus; no headache(s), abnormal hearing, ear pain, nasal congestion, sore throat or neck pain Resp Respiratory: No snoring, cough, shortness of breath or wheezing Cardio Cardiology: No excessive sweating, chest pain at rest, chest pain with exertion, shortness of breath, dyspnea on exertion, palpitations, orthopnea or lightheadedness Gastro GI: No abdominal pain, change in bowel habits, constipation, diarrhea, vomiting, nausea/dyspepsia or cramping Musc Musculoskeletal: Positive for numbness (hand right), tingling and muscle cramps (right lower leg intermittent); no neck pain, abnormal walking, joint pain, back pain or limited range of motion Skin Skin: No redness, dry skin, itching, lesions, wounds or rash Neuro Neurology: Positive for numbness (hand right), tingling and dizziness (when he sits up or stands up quickly.); no weakness, frequent falls, headache(s), abnormal hearing, abnormal walking, abnormal speech or memory loss Psych Psychiatric: No change in appetite, No memory loss, No anxiety, No depression, No Thoughts of harming yourself/Others Endo Endocrine: No fatigue, excessive sweating, cold intolerance, increased thirst/drinking, heat intolerance, flushing or increased hunger Aller/Imm Allergy/Immunologic: No wheezing, itchy eyes, hives or seasonal allergy symptoms Milo/Lymp Hematologic/Lymphatic: No easy bleeding, easy bruising or enlarged lymph nodes Exam Const General: cooperative, no acute distress, well developed Orientation: alert, awake, oriented x3 [facility] Head: atraumatic, normocephalic, normal to inspection Ears: hearing grossly normal bilaterally Resp Effort AND Inspection: normal respiratory effort, able to speak in complete sentences Auscultation: Bilateral: Clear to Auscultation Cardio Rate: regular rate Rhythm: regular rhythm Heart Sounds: S1 normal, S2 normal GI Palpation: no hepatosplenomegaly, soft Neuro General: alert, awake, CN's II-XI intact bilaterally, moves all extremities Extrem General: no clubbing, cyanosis or edema Other: Dupuytren's contracture present right fourth digit palmar surface Psych Appearance: grossly normal Mental Status: mental status grossly normal Affect: normal affect Assessment AND Plan 1. HTN (hypertension) I10 Plan Hypertension: Blood pressure is suboptimal at this time. Will make changes to current medication regimen which include the addition of hydralazine tid 25 mg for one week then call office before increasing to 50 mg tid. Baseline labs reviewed. Educated patient on the potential side effects of the new medication and to keep a log of their blood pressures at home. Discussed risk factor reduction and lifestyle modifications. Discussed dietary changes that should be considered which include reducing the amount of sodium intake. Patient instructed to follow up in 2 weeks for hypertension follow up visit. Continue keeping a log of blood pressures. Blood work ordered during today's office visit. Educated patient about potential side effects of new medication. Orders Orders: 2. Type 2 diabetes mellitus E11.9 Plan Patient does not check his blood sugars and no recent A1c for review, A1c ordered during today's office visit. No signs of hypo-or hyperglycemia, he was referred to podiatry for a diabetic foot exam as well. Orders Orders: Referrals: 3. Dupuytren's contracture of right hand M72.0 Plan . Referral made to Dr. Araujo plastic surgery Orders Referrals: 4. Carpal tunnel syndrome of right wrist G56.01 Plan Reprinted prescription for wrist splint and patient pickup at DME provider 5. Glaucoma H40.9 Plan Patient is following up with death claim clerk who has done a recent exam and change his prescription lenses, continue atenolol eyedrops. This note was generated with [employer] dictation software. It may contain incorrect words, spelling, and punctuation that were not noted in checking the note before signing. Plan Detail Other Medications New: hydralazine Take half tablet 3 times a day for week one, then resume whol50 mg PO Q8H e tablet Refilled: Follow Up 2 Weeks Coding Level of Care Code Off vis,est,level 4 Diagnoses HTN (hypertension) I10 Type 2 diabetes mellitus E11.9 Dupuytren's contracture of right hand M72.0 Carpal tunnel syndrome of right wrist G56.01 Glaucoma H40.9 03/18/17 0829 <Electronically signed by Demetrio ALEJANDROC> Date Demetrio Bae PERIPATOLOGIST-C Cosigner Signature: Date (if applicable) CC: CBC W/DIFF, AUTOMATED Collected: 03/18/2017 Status: F Source: [place] 4:18 PM [facility] REPOS[facility] TYPE CODE TESTS RESULT OUT OF RANGE REFERENCE UNITS LAB L100.1000 4.4-11.0 K/mm3 Normal WBC 10.4 LAB L100.1200 4.6-6.2 M/mm3 Normal RBC 4.95 LAB L100.1300 13.0-16.5 g/dl Normal HGB 14.2 LAB L100.1400 40-54 % Normal HCT 41.8 LAB L100.1500 80-94 fL Normal MCV 84.4 LAB L100.1600 27.0-32.0 pg Normal MCH 28.7 LAB L100.1700 32-36 g/gl Normal MCHC 34.0 LAB L100.1810 11.6-14.6 % Normal RDW CV 12.7 LAB L100.1820 35.1-43.9 fl Normal RDW SD 38.4 LAB L100.1900 150-450 K/mm3 Normal PLT 249 LAB L100.2000 6.2-12.0 fl Normal MPV 10.4 LAB L100.2100 47-70 % Normal NEUT% 59.8 LAB L100.2200 19-41 % Normal LY% 27.9 LAB L100.2300 0-10 % Normal MONO% 8.0 LAB L100.2400 0-5 % Normal EO% 3.3 LAB L100.2500 0-1 % Normal BASO% 0.8 LAB L100.2550 0.0-0.9 % Normal IM GRAN % 0.200 Result Comment: IG% - Immature Granulocytes (promyelocytes, myelocytes and metamyelocytes) > 1% indicates that a LEFT SHIFT is Present. LAB L100.2620 2.0-7.7 X10 3/uL Normal Absolute Neut 6.2 LAB L100.2720 0.83-4.51 X10 3/ul Normal Absolute Lymph 2.89 Performed By: #### L100.0100 #### [facility] [address] [place], [address] COMPREHENSIVE METABOLIC Collected: 03/18/2017 Status: F Source: TANG MEDINA 4:18 PM [facility] REPOSITORY TYPE CODE TESTS RESULT OUT OF RANGE REFERENCE UNITS LAB L501.0100 74-106 mg/dL High GLU 314 Result Comment: Glucose result greater than or equal to 200 mg/dL suggests DIABETES MELLITUS per A.D.A. criteria. LAB L501.1000 7-18 mg/dL High BUN 31 LAB L501.1100 0.70-1.30 mg/dL High CREAT,SERUM 1.66 Result Comment: The validity of the calculated GFR AND GFRAA in patients over 70 years has not been determined. Clinical correlation is essential. LAB L501.1110 >60 mL/min Low EST GFR 45 Result Comment: Non- GFR Calc LAB L501.1115 >60 mL/min Low EST GFR - AA 54 Result Comment: GFR Calc LAB L501.1300 10-20 RATIO Normal BUN/CRE 18.7 LAB L501.1500 6.4-8.2 g/dL T Normal PROT 7.1 LAB L501.1800 3.2-5.0 g/dL Low ALB 3.1 LAB L501.1950 2.2-4.2 g/dL Normal GLOB 4.0 LAB L501.2000 0.9-2.4 RATIO Low A/G 0.8 LAB L501.2200 8.5-10.1 mg/dL CA Normal 8.7 LAB L501.4100 15-37 U/L Normal AST 15 LAB L501.4305 45-117 U/L High ALK P 127 LAB L501.4405 16-61 U/L Normal ALT 21 Result Comment: Please note revised ALT reference range effective 2017. LAB L501.4600 0.20-1.00 mg/dL Normal T BILI 0.40 LAB L501.5300 136-145 mmol/L Low NA 135 LAB L501.5600 3.5-5.1 mmol/L Low K 3.1 LAB L501.5900 98-107 mmol/L Low CL 97 LAB L501.6100 21.0-32.0 mmol/L Normal CO2 31.0 LAB L501.6200 5-15 Normal GAP 7 Performed By: #### L500.4050, L501.9520, L501.9985, L502.0250 #### [facility] [address] [place], [address] THYROID STIM HORMONE Collected: 03/18/2017 Status: F Source: TANG (TSH) 4:18 PM [facility] REPOSITORY TYPE CODE TESTS RESULT OUT OF RANGE REFERENCE UNITS LAB L501.9520 0.358-3.74 uIU/mL Normal TSH 1.24 Performed By: #### L500.4050, L501.9520, L501.9985, L502.0250 #### [facility] [address] [place], [place], [address] HEMOGLOBIN A1C Collected: 03/18/2017 Status: F Source: TANG 4:18 PM [facility] REPOSITORY TYPE CODE TESTS RESULT OUT OF RANGE REFERENCE UNITS LAB L501.9985 4.2-6.3 % High HGB A1C 14.1 Performed By: #### L500.4050, L501.9520, L501.9985, L502.0250 #### [facility] Laboratory [address] [place], [address] MICROALB:CREAT Collected: 03/18/2017 Status: F Source: TANG RATIO,RANDOM UR 4:18 PM [facility] REPOSITORY TYPE CODE TESTS RESULT OUT OF RANGE REFERENCE UNITS LAB L501.1200 NO RANGE EST. mg/dL Normal UR CREAT 40.90 LAB L502.0500 NO RANGE EST. mg/L Normal 883.0 MICROALBUMIN ,UR LAB L502.0600 <30 mg/g CRE mg/g CRE High 2158.9 MALB:CREAT Performed By: #### L500.4050, L501.9520, L501.9985, L502.0250 #### [facility] [address] [place], [place], [address] INTERNAL MEDICINE Observed: 03/14/2017 Status: F Source: TANG OFFICE VISIT 9:28 AM [facility] Internal Medicine [address] [place] [address] OFFICE VISIT Date of Service: 03/07/17 MR#: [id number] Acct: [id number] Name: MELVIN CONCEPCION Rep #: [id number] : 1955 Provider: Solomon Melendrez MD Age/Sex: 61/M Location: [facility] Status: Signed Intake Vital Signs03/07/17 Height 6 ft 1 in 03/07/17 Weight: 191 lb 4 oz Intake Visit Reasons: EST/NEED REFILLS Zoology Teacher Required: No Accompanied by: None Is patient in pain?: Yes (right hand) Pain scale (1-10): 9 Allergies No Known Allergies Allergy (Verified 04/10/15 11:01) Medications arm brace See Dose Instructions .ROUTE .MEDSUPPLY #1 ea 03/07/17 [Rx Confirmed 03/07/17] aspirin 81 mg tablet,delayed release 81 mg PO BID tab 03/07/17 [History Confirmed 03/07/17] chlorthalidone 25 mg tablet 25 mg PO QDAY #90 tab 03/07/17 [Rx Confirmed 03/07/17] glipizide ER 5 mg tablet, extended release 24 hr 10 mg PO DAILY@0800 #90 tab 03/07/17 [Rx Confirmed 03/07/17] insulin glargine 100 unit/mL (3 mL) subcutaneous pen 20 unit SC QAM #15 ml 03/07/17 [Rx Confirmed 03/07/17] lisinopril 40 mg tablet 40 mg PO QDAY #90 tab 03/07/17 [Rx Confirmed 03/07/17] metoprolol succinate ER 100 mg tablet,extended release 24 hr 100 mg PO .daily #90 tab 03/07/17 [Rx Confirmed 03/07/17] timolol maleate 0.25 % eye drops 1 drp OPHTHALMIC DAILY #10 ml 03/07/17 [Rx Confirmed 03/07/17] PFSH Medical History Arthritis (Acute) Cataracts, bilateral (Acute) Diabetes (Acute) Glaucoma (Acute) H/O: stroke (Acute) HTN (Acute) Vision problems (Acute) Family History Mother Arthritis Melanoma Diabetes Hypertension Father Diabetes Hypertension Arthritis Brother Thyroid disorder Grandfather Arthritis Diabetes Cancer Grandmother Arthritis Diabetes Cancer Grandfather Arthritis Hypertension Diabetes Social History Smoking Status: Former smoker alcohol intake: current alcohol intake frequency: holidays/special occasions only Alcohol type: beer substance use type: does not use what type of physical activity do you participate in: walking frequency: 3-4 times per week duration: 45-60 minutes/day HPI EST/NEED REFILLS: Details: MELVIN CONCEPCION, is a 61yo M who presents to the office today to establish care. He has a past medical history of hypertension, diabetes mellitus type 2 insulin-dependent, osteoarthritis, cataracts and glaucoma. Blood pressure taken in the office today is significantly elevated at 210/131 mmHg. Patient has been out of his blood pressure medications for about 4 months due to lack of insurance. He states that he checks his blood pressure at home and has also been around 170/130 mmHg for the most part. He denies chest pain, shortness of breath, palpitations or leg swelling. He also has a history of diabetes mellitus type 2 insulin- dependent. He has also not been on his medications for over a month due to lack of insurance. Blood sugars typically range between 150-170 fasting. Reports chronic pain which has been ongoing for 6 months. He has not had this checked in the past. He also reports tingling in his ring and middle fingers occasionally. ROS Const Constitutional: Positive for fatigue; no body ache, chills, fever(s), frequent falls, headache(s), sleep problems, change in appetite, snoring, excessive sweating or weakness Eyes Eyes: Positive for blurry vision and light sensitivity; no change in vision or eye pain ENT ENT: Positive for tinnitus; no headache(s), abnormal hearing, ear pain, nasal congestion, nasal discharge, sore throat or neck pain Resp Respiratory: No snoring, cough, shortness of breath or wheezing Cardio Cardiology: No excessive sweating, chest pain at rest, chest pain with exertion, shortness of breath, dyspnea on exertion, orthopnea, palpitations or lightheadedness Gastro GI: No abdominal pain, change in bowel habits, diarrhea, constipation, vomiting, nausea/dyspepsia or cramping Musc Musculoskeletal: Positive for joint pain, numbness and tingling; no neck pain, abnormal walking, back pain or limited range of motion Skin Skin: No redness, dry skin, itching, lesions, wounds or rash Neuro Neurology: Positive for numbness and tingling; no frequent falls, headache(s), weakness, abnormal hearing, abnormal walking, abnormal speech, dizziness or memory loss Psych Psychiatric: No change in appetite, No memory loss, No anxiety, No depression, No Thoughts of harming yourself/Others Endo Endocrine: Positive for fatigue; no excessive sweating, cold intolerance, increased thirst/drinking, heat intolerance, increased hunger or flushing Aller/Imm Allergy/Immunologic: No wheezing, itchy eyes, seasonal allergy symptoms or hives Milo/Lymp Hematologic/Lymphatic: Positive for easy bruising; no easy bleeding or enlarged lymph nodes Exam Const General: cooperative, no acute distress, well developed Orientation: alert, awake, oriented x3 HENMT Head: atraumatic, normocephalic, normal to inspection Ears: hearing grossly normal bilaterally Resp Effort AND Inspection: normal respiratory effort, able to speak in complete sentences Auscultation: Bilateral: Clear to Auscultation Cardio Rate: regular rate Rhythm: regular rhythm Heart Sounds: S1 normal, S2 normal GI Palpation: no hepatosplenomegaly, soft Neuro General: alert, awake, CN's II-XI intact bilaterally, moves all extremities Extrem General: no clubbing, cyanosis or edema Other: Positive Tinel and Phalen's sign. Psych Appearance: grossly normal Mental Status: mental status grossly normal Affect: normal affect Assessment AND Plan 1. Hypertension I10 Plan Significantly elevated blood pressure today. Patient has been off of his medications for about 4 months due to lack of insurance. Refills given for lisinopril 40 mg daily, chlorthalidone 25 mg daily, metoprolol 100 mg daily sent to his pharmacy. Patient advised to start lisinopril and chlorthalidone for the first 2 days and add metoprolol on the third day to avoid crashing his blood pressure. Lifestyle modifications. Follow-up in 2 weeks. 2. Type 2 diabetes mellitus E11.9 Plan Restarted on his previous medications. Continue blood sugar checks. Continue lifestyle modification. Labs in 2 weeks. 3. Carpal tunnel syndrome of right wrist G56.01 Plan Ongoing for about 7 months. Positive Tinel and Phalen's signs. Wrist Brace recommended. NSAIDs also recommended. Associated history of Dupuytren's, will refer to Ortho at next visit. 4. Glaucoma H40.9 Plan Currently on timolol however has not also used it in about 4 months. Refills given. Advised to follow-up with his death claim clerk as soon as possible. This note was generated with [employer]os[employer] dictation software. It may contain incorrect words, spelling, and punctuation that were not noted in checking the note before signing. Plan Detail Other Medications New: Changed: Discontinued: lisinopril-hydrochlorothiazide 20-25 mg Discontinued Reason: Order Chan1 ea PO DAILY ged Follow Up 2 Weeks Coding Level of Care Code Off vis,new,level 4 Diagnoses Hypertension I10 Type 2 diabetes mellitus E11.9 Carpal tunnel syndrome of right wrist G56.01 Glaucoma H40.9 03/14/17 0928 <Electronically signed by Solomon Melendrez MD> Date Solomon Melendrez MD Cosigner Signature: Date (if applicable) CC: ALLERGIES ALLERGIES DATE TYPE / CODE NAME / CODE REACTION SEVERITY SOURCE 12/23/2017 Drug No Known Unknown [place] Allergy/416 Allergies/[id number] [facility] 249072([place] [address](RXNORM) [facility]) Repository Drug/909003 No Known Allergies Mormonism 003([facility] CT) System Repository Drug/139523 penicillins Rash Mormonism 003([facility] CT) System Repository ENCOUNTERS ENCOUNTERS ADMIT/DISCHARGE ACCOUNT NUMBER ADMITTING ENCOUNTER LOCATION SOURCE CLASS 01/27/2018 [id number] Ambulatory [facility] ding:[facility] Repository 01/24/2018/01/25/20 [id number] Em Emergency Mormonism Mormon[facility] 18 [facility] ding:[facility] EDRoom: WR Repository 01/24/2018 [id number] Ambulatory [address] [place] [address] Repository 12/23/2017/12/24/19 [id number] Ambulatory BMSBuilding: [place] 18 [facility] Repository 12/15/2017 [id number] Ambulatory [facility] ding:LAB Repository 11/04/2017/11/05/19 [id number] Ambulatory BMSBuilding: [place] 18 BMS.[facility] Repository 10/21/2017 [id number] Ambulatory BMSBuilding: [place] BMS.CF.[facility] Repository 10/21/2017/10/22/19 [id number] Ambulatory [place] 18 [facility] ding:ENRoom: Repository AC16 10/19/2017/10/20/19 [id number] [place], Ambulatory [address] ding:[facility] Repository 10/19/2017 [id number] Ambulatory [address] [place] [address] Repository 10/13/2017/10/14/19 [id number] Ambulatory BMSBuilding: [place] 18 BMS.[facility] Repository 10/06/2017/10/07/19 [id number] Ambulatory BMSBuilding: [place] 18 BMS.[facility] Repository 10/05/2017/10/06/19 [id number] Ambulatory BMSBuilding: [place] 18 BMS.[facility] Repository 10/05/2017 [id number] Ambulatory [facility] ding:LAB Repository 09/15/2017/09/16/19 [id number] Ambulatory BMSBuilding: [place] 18 BMS.[facility] Repository 09/05/2017 [id number] Ambulatory [facility] ding:[facility] Repository 09/02/2017 [id number] Ambulatory [facility] ding:[facility] Repository 08/31/2017 [id number] Ambulatory BMSBuilding: [place] BMS.CF.[facility] Repository 08/31/2017/09/01/19 [id number] Ambulatory [address] ding:SDCRoom Repository : AC08 08/22/2017/08/23/19 [id number] Ambulatory BMSBuilding: [place] 18 BMS.[facility] Repository 08/19/2017 [id number] Ambulatory [facility] ding:LAB Repository 08/02/2017/08/03/19 [id number] Ambulatory BMSBuilding: [place] 18 BMS.[facility] Repository 07/27/2017 [id number] Ambulatory BMSBuilding: [place] BMS.[facility] Repository 07/21/2017 [id number] Ambulatory BMSBuilding: [place] BMS.[facility] Repository 07/06/2017 [id number] Ambulatory [facility] ding:PSN Repository 06/15/2017/06/16/19 [id number] Ambulatory BMSBuilding: [place] 18 BMS.[facility] Repository 06/08/2017 [id number] Ambulatory [facility] ding:LAB Repository 05/18/2017 [id number] Ambulatory BMSBuilding: [place] BMS.[facility] Repository 04/19/2017 [id number] Ambulatory [facility] ding:HPRAD Repository 04/19/2017/04/20/19 [id number] Ambulatory BMSBuilding: [place] 18 BMS.[facility] Repository 04/06/2017 [id number] Ambulatory [facility] ding:MTLAB Repository 04/06/2017/04/06/19 [id number] Ambulatory BMSBuilding: [place] 18 BMS.[facility] Repository 03/18/2017 [id number] Ambulatory [facility] ding:MTLAB Repository 03/18/2017/03/18/19 [id number] Ambulatory BMSBuilding: [place] 18 BMS.[facility] Repository 03/07/2017/03/07/19 [id number] Ambulatory BMSBuilding: [place] 18 BMS.[facility] Repository PAYERS PAYERS ENCOUNTER GUARANTOR PAYER SUBSCRIBER SOURCE 01/27/2018 MELVIN TORRESINE1937 Insurance:JESSA AMADOR: [id number] Number: Repository [address], [place] [id number]: ([phone]) Date:2455-35-78YY [phone] () [place], [place] [address]TQ: 01/27/2018 Secondary NOT GIVENUNK [place] Insurance:SELF PAY Community INSURANCEPolicy Number: Hospital Effective Repository Date:2017-11-03 01/24/2018 MELVIN Marquez Primary MELVIN Hughes KLINEDOB: [facility] Number: Effective [id number] [address] Date:2018-01-[address]ository [address] [place] [address], [id number] [address] [place] [address] Name:[place] [address]Kes: [id number] [place] [id number]: [facility] [place] [address]GF: (FZ) 614 (HP) (WP) 01/24/2018 Secondary MELVIN Hughes Insurance:INSURANCE KLINEDOB: [facility] EXCHANGEPolicy Number: [id number] System Effective [address] Repository Date:2018-01-24 [address], [id number] [place] Name:[place] [phone]: [address], [place] [address]UG: (HP) (WP) 01/24/2018 MELVIN TORRESINEDOB: Primary MELVIN LOPEZOB: [place] Insurance:[facility] [id number] [place], [place] [address] [address] Repository [address] [place] [address], Number: [address] [place] [id number]: [id number] [place] [id number]: Date:Plan Name:[facility] (HP) (HP) 12/23/2017 MELVIN Marquez Primary MELVIN E [place] [id number] Insurance:CARESOURCE [facility]LINEDOB[facility] [id number] Hospital [place] Number: Repository [address] [place] [address] [id number]: ([phone]) Date:1485-51-64RA [phone] (HP) [address] [place] [address]FF: 12/23/2017 Secondary NOT GIVENUNK [place] Insurance:SELF PAY Community INSURANCEPolicy Number: Hospital Effective Repository Date:2017-12-23 12/15/2017 MELVIN Marquez Primary MELVIN Beckwith [id number] Insurance:CARESOURCE KLINEDOB: Community [address] JUST FOR MEPolicy [id number] Hospital [place] Number: Repository [address] [place] [address] [id number]: ([phone]) Date:3977-43-80IP [phone] (HP) [address] [place] [phone]: 12/15/2017 Secondary NOT GIVENUNK [place] Insurance:SELF PAY Community INSURANCEPolicy Number: Hospital Effective Repository Date:2017-12-15 11/04/2017 MELVIN Marquez Primary MELVIN Beckwith [id number] Insurance:CARESOURCE KLINEDOB: Community [place] JUST FOR MEPolicy [id number] Hospital [place] Number: Repository [address] [place] [address] [id number]: ([phone]) Date:8880-09-35JH [phone] (HP) [address] [place] [phone]: 11/04/2017 Secondary NOT GIVENUNK [place] Insurance:SELF PAY Community INSURANCEPolicy Number: Hospital Effective Repository Date:2017-11-04 10/21/2017 MELVIN Marquez Primary MELVIN Hydeoster [id number] Insurance:CARESOURCE KLINEDOB: Community [place] JUST FOR MEPolicy [id number] Hospital [place] Number: Repository [address] [place] [address] [id number]: ([phone]) Date:8276-42-00TO [phone] (HP) [address] [place] [phone]: 10/21/2017 Secondary NOT GIVENUNK [place] Insurance:SELF PAY Community INSURANCEPolicy Number: Hospital Effective Repository Date:2017-10-21 10/21/2017 MELVIN Marquez Primary MELVIN Marquez [place] [id number] Insurance:CARESOURCE KLINEDOB: Community [place] JUST FOR [facility] [id number] Hospital [place] Number: Repository [address] [place] [address] [id number]: ([phone]) Date:6436-08-87TE [phone] (HP) [address] [address]LZ: 10/21/2017 Secondary NOT GIVENUNK [place] Insurance:SELF PAY Community INSURANCEPolicy Number: Hospital Effective Repository Date:2017-10-06 10/19/2017 MELVIN Marquez Primary MELVIN Marquez Mormonism KLINEDOB: Insurance:INSURANCE KLINEDOB: [facility] EXCHANGEPolicy Number: [id number] Effective [address]ository [address], Date:2017-10-19 - [address] [place] [address] [id number] [place] [address]Roj: Name:[facility] [phone]: [address], [place] [address]YT: (HP) (HP) () 10/13/2017 MELVIN Marquez Primary MELVIN Marquez [place] [id number] Insurance:CARESOURCE KLINEDOB: Community [place] JUST FOR [facility] [id number] Hospital [place] Number: Repository [address] [place] [address] [id number] [id number]: ([phone]) Date:0443-47-59TA [phone] (HP) [address] [address]JQ: 10/13/2017 Secondary NOT GIVENUNK [place] Insurance:SELF PAY Community INSURANCEPolicy Number: Hospital Effective Repository Date:2017-09-15 10/06/2017 MELVIN Marquez Primary MELVIN Marquez [place] [id number] Insurance:CARESOURCE KLINEDOB: Community [place] JUST FOR [facility] [id number] Hospital [place] Number: Repository [address] [place] [address] [id number] [id number]: ([phone]) Date:0063-71-45KS [phone] (HP) [address] [address]DF: 10/06/2017 Secondary NOT GIVENUNK [place] Insurance:SELF PAY Community INSURANCEPolicy Number: Hospital Effective Repository Date:2017-10-06 10/05/2017 MELVIN E Primary MELVIN Marquez [place] TORRESINE1937 Insurance:CARESOURCE KLINEDOB: Community [place] JUST FOR [facility] [id number] Hospital [place] Number: Repository [address] [place] [address] [id number]: ([phone]) Date:7639-25-76QS [phone] (HP) [address] [place] [phone]: 10/05/2017 Secondary NOT GIVENUNK [place] Insurance:SELF PAY Community INSURANCEPolicy Number: Hospital Effective Repository Date:2017-10-05 10/05/2017 MELVIN E Primary MELVIN Marquez [place] TORRESINE1937 Insurance:CARESOURCE KLINEDOB: Community [place] JUST FOR [facility] [id number] Hospital [place] Number: Repository [address] [place] [address] [id number]: ([phone]) Date:4269-39-52GS [phone] (HP) [address] [place] [phone]: 10/05/2017 Secondary NOT GIVENUNK [place] Insurance:SELF PAY Community INSURANCEPolicy Number: Hospital Effective Repository Date:2017-10-05 09/15/2017 MELVIN Marquez Primary MELVIN Marquez [place] TORRESINE1937 Insurance:CARESOURCE KLINEDOB: Community [place] JUST FOR [facility] [id number] Hospital [place] Number: Repository [address] [place] [address] [id number]: ([phone]) Date:8006-74-34NU [phone] (HP) [address] [address]HH: 09/15/2017 Secondary NOT GIVENUNK [place] Insurance:SELF PAY Community INSURANCEPolicy Number: Hospital Effective Repository Date:2017-09-15 09/05/2017 MELVIN Marquez Primary MELVIN Marquez [place] [id number] Insurance:CARESOURCE KLINEDOB: Community [place] JUST FOR [facility] [id number] Hospital [place] Number: Repository [address] [place] [address] [id number]: ([phone]) Date:1874-11-18ST [phone] (HP) [address] [place] [phone]: 09/05/2017 Secondary NOT GIVENUNK [place] Insurance:SELF PAY Community INSURANCEPolicy Number: Hospital Effective Repository Date:2017-08-23 09/02/2017 MELVIN Marquez Primary MELVIN Marquez [place] TORRESINE1937 Insurance:CARESOURCE KLINEDOB: Community [place] JUST FOR [facility] [id number] Hospital [place] Number: Repository [address] [place] [address] [id number]: ([phone]) Date:5967-20-56RU [phone] (HP) [address] [place] [phone]: 09/02/2017 Secondary NOT GIVENUNK [place] Insurance:SELF PAY Community INSURANCEPolicy Number: Hospital Effective Repository Date:2017-08-23 08/31/2017 MELVIN Marquez Primary MELVIN Marquez [place] TORRESINE1937 Insurance:CARESOURCE KLINEDOB: Community [place] JUST FOR [facility] [id number] Hospital [place] Number: Repository [address] [place] [address] [id number] [id number]: ([phone]) Date:6459-08-32KT [address] (HP) [address] [place] [address]CN: 08/31/2017 Secondary NOT GIVENUNK [place] Insurance:SELF PAY Community INSURANCEPolicy Number: Hospital Effective Repository Date:2017-08-31 08/31/2017 MELVIN Marquez Primary MELVIN Marquez [place] TORRESINE1937 Insurance:CARESOURCE KLINEDOB: Community [place] JUST FOR [facility] [id number] Hospital [place] Number: Repository [address], [place] [id number]: ([phone]) Date:9861-27-18SL [address] (HP) [address] [place] [address]PD: 08/31/2017 Secondary NOT GIVENUNK [place] Insurance:SELF PAY Community INSURANCEPolicy Number: Hospital Effective Repository Date:2017-08-03 08/22/2017 MELVIN Marquez Primary MELVIN Beckwith [id number] Insurance:CARESOURCE KLINEDOB: Community [place] [facility] [id number] [facility] Number: [place]ository [address] [id number]: [phone]) Date:3433-21-64TN [phone] (HP) [address] [place] [phone]: 08/22/2017 Secondary NOT GIVENUNK Tang Insurance:SELF PAY Community INSURANCEPolicy Number: Hospital Effective Repository Date:2017-07-28 08/19/2017 MELVIN E Primary MELVIN Marquez [place] [id number] Insurance:CARESOURCE KLINEDOB: Community [place] JUST FOR [facility] [id number] Hospital [facility] Number: Repository [address] [place] [address] [id number] [phone]: [phone]) Date:2798-16-23UM [phone] (HP) [address] [place] [phone]: 08/19/2017 Secondary NOT GIVENUNK [place] Insurance:SELF PAY Community INSURANCEPolicy Number: Hospital Effective Repository Date:2017-08-19 08/02/2017 MELVIN Marquez Primary MELVIN [place] [id number] Insurance:CARESOURCE KLINEDOB: Community [place] [facility] [id number] [facility] Number: Repository [address] [id number] [id number]: [phone]) Date:1169-13-55PK [phone] (HP) [address] [place] [phone]: 08/02/2017 Secondary NOT GIVENUNK [place] Insurance:SELF PAY Community INSURANCEPolicy Number: Hospital Effective Repository Date:2017-08-02 07/27/2017 MELVIN Marquez Primary MELVIN Marquez [place] [id number] Insurance:CARESOURCE KLINEDOB: Community [place] JUST FOR [facility] [id number] Hospital [facility] Number: Repository [address] [place] [address] [id number]: [phone]) Date:6433-48-86DT [phone] (HP) [address] [place] [phone]: 07/27/2017 Secondary NOT GIVENUNK [place] Insurance:SELF PAY Community INSURANCEPolicy Number: Hospital Effective Repository Date:2017-06-15 07/21/2017 MELVIN Marquez Primary MELVIN Marquez [place] TORRESINE1937 Insurance:CARESOURCE KLINEDOB: Community [place] JUST FOR [facility] [id number] [facility] Number: Repository [address] [place] [address] [id number]: [phone]) Date:2801-58-12AZ [phone] (HP) [address] [place] [phone]: 07/21/2017 Secondary NOT GIVENUNK [place] Insurance:SELF PAY Community INSURANCEPolicy Number: Hospital Effective Repository Date:2017-07-06 07/06/2017 MELVIN Marquez Primary MELVIN Marquez [place] TORRESINE1939 Insurance:CARESOURCE KLINEDOB: Community [place] JUST FOR [facility] [id number] Hospital [facility] Number: Repository [address] [place] [address] [id number]: [phone]) Date:8110-57-61LL [phone] (HP) [address] [place] [phone]: 07/06/2017 Secondary NOT GIVENUNK [place] Insurance:SELF PAY Community INSURANCEPolicy Number: Hospital Effective Repository Date:2017-04-20 06/15/2017 MELVIN FERNANDEZ7 Primary MELVIN JESSICAOB: [place] Insurance:CARESOURCE [id number] Community [place] JUST FOR [address] Number: Repository [id number]: ([phone] [id number] [phone] (HP) Date:2179-88-11MK [address] [place] [phone]: 06/15/2017 Secondary NOT GIVENUNK [place] Insurance:SELF PAY Community INSURANCEPolicy Number: Hospital Effective Repository Date:2017-06-15 06/08/2017 MELVIN CONCEPCION1939 Primary MELVIN LOPEZOB: [place] Insurance:CARESOURCE [id number] Community [place] [address] Number: Repository [id number]: [phone] [id number] [phone] (HP) Date:3503-10-04WI [address] [place] [phone]: 06/08/2017 Secondary NOT GIVENUNK [place] Insurance:SELF PAY Community INSURANCEPolicy Number: Hospital Effective Repository Date:2017-06-08 05/18/2017 MELVIN FERNANDEZ7 Primary MELVIN LOPEZOB: [place] Insurance:CARESOURCE [id number] Community [place] [address] Number: Repository [id number]: [phone] [id number] [phone] (HP) Date:6078-97-02SV [address] [phone]: 05/18/2017 Secondary NOT GIVENUNK [place] Insurance:SELF PAY Community INSURANCEPolicy Number: Hospital Effective Repository Date:2017-04-06 04/19/2017 MELVIN CONCEPCION1939 Primary MELVIN LOPEZOB: [place] Insurance:CARESOURCE [id number] Community [place] [address] Number: Repository [id number]: [phone] [id number] [phone] (HP) Date:5589-92-85VA [address] [place] [phone]: 04/19/2017 Secondary NOT GIVENUNK [place] Insurance:SELF PAY Community INSURANCEPolicy Number: Hospital Effective Repository Date:2017-04-19 04/19/2017 MELVIN FERNANDEZ7 Primary MELVIN LOPEZOB: [place] Insurance:CARESOURCE [id number] Community [place] JUST FOR [address] Number: Repository [id number]: [phone] [id number] [phone] (HP) Date:0200-63-84KY [address] [phone]: 04/19/2017 Secondary NOT GIVENUNK [place] Insurance:SELF PAY Community INSURANCEPolicy Number: Hospital Effective Repository Date:2017-04-07 04/06/2017 MELVIN CONCEPCION1937 Primary MELVIN TORRESINEDOB: [place] Insurance:CARESOURCE [id number] Community [place] JUST FOR [address] Number: Repository [id number]: [phone] [id number] [phone] (HP) Date:7239-68-86TL [address] [phone]: 04/06/2017 Secondary NOT GIVENUNK [place] Insurance:SELF PAY Community INSURANCEPolicy Number: Hospital Effective Repository Date:2017-04-06 04/06/2017 MELVIN CONCEPCION1939 Primary MELVIN TORRESINEDOB: [place] Insurance:CARESOURCE [id number] Community [place] JUST FOR [address] Number: Repository [id number]: [phone] [id number] [phone] (HP) Date:2951-15-90XW [address] [phone]: 04/06/2017 Secondary NOT GIVENUNK [place] Insurance:SELF PAY Community INSURANCEPolicy Number: Hospital Effective Repository Date:2017-04-04 03/18/2017 MELVIN CONCEPCION1939 Primary MELVIN TORRESINEDOB: [place] Insurance:CARESOURCE [id number] Community [place] JUST [address] Number: Repository [id number]: [phone]) [id number] [phone] (HP) Date:9291-57-99CU [address] [phone]: 03/18/2017 Secondary NOT GIVENUNK [place] Insurance:SELF PAY Community INSURANCEPolicy Number: Hospital Effective Repository Date:2017-03-18 03/18/2017 MELVIN CONCEPCION1939 Primary MELVIN LOPEZOB: [place] Insurance:CARESOURCE [id number] Community [place] JUST [address] Number: Repository [id number]: ([phone]) [id number] [phone] () Date:5778-53-16VF [address] [place] [phone]: 03/18/2017 Secondary NOT GIVENUNK [place] Insurance:SELF PAY Community INSURANCEPolicy Number: Hospital Effective Repository Date:2017-03-07 03/07/2017 MELVIN CONCEPCION1939 Primary MELVIN LOPEZOB: [place] Insurance:CARESOURCE [id number] [facility] [place] [address] Number: Repository [id number]: [phone] [id number] [phone] () Date:6927-11-08LJ [address] [place] [phone]: 03/07/2017 Secondary NOT GIVENUNK [place] Insurance:SELF PAY Community INSURANCEPolicy Number: Hospital Effective Repository Date:2017-03-04
== END ==
LOC: CVS 13:52
PROVIDERS: Family Provider Internal Medicine; PCP Internal Medicine; Referring Provider Surgery Vascular Surgery; Visit Provider Surgery Vascular Surgery
DX: M79.89 Other specified soft tissue disorders (principal); M79.604 Pain in right leg; M79.605 Pain in left leg
CPT/HCPCS: 93970

== ENCOUNTER → 2018-03-20 12:17 | Outpatient (CLI) | payer OTHER, SELFPAY ==
[2018-03-20 12:17] VITALS: BMI 26.2
[2018-03-20 13:31] LABS: Hematocrit 40.5 % (40-54); Mean Corp Hgb Conc 34.6 g/gl (32-36); Mean Corpuscular Hgb 28.9 pg (27.0-32.0); Mean Corpuscular Volume 83.5 fL (80-94); Mean Platelet Vol. 10.2 fl (6.2-12.0); Platelet Count 238 K/mm3 (150-450); RBC Distribution Width CV 12.9 % (11.6-14.6); RBC Distribution Width SD 38.8 fl (35.1-43.9); Red Blood Count 4.85 M/mm3 (4.6-6.2); White Blood Count 9.3 K/mm3 (4.4-11.0)
[2018-03-20 13:42] LABS: Scan Indicated on CBC? Y/N NO
[2018-03-20 13:45] LABS: Protein, Urine (Random) 389.1 mg/dL (<11.9); Protein:Creat Ratio 2344 mg/g CRE (0-200)
[2018-03-20 14:06] LABS: Albumin, Serum 3.3 g/dL (3.2-5.0); BUN 29 mg/dL (7-18); BUN/Creat Ratio 16.1 RATIO (10-20); Calcium,Total 8.6 mg/dL (8.5-10.1); Chloride 103 mmol/L (98-107); EST Glomerular Filtration Rate 41 mL/min (>60); Est Glom Filt Rate - Afr Amer 49 mL/min (>60); Glucose 257 mg/dL (74-106); Phosphorus 2.9 mg/dL (2.5-4.9); Potassium 3.8 mmol/L (3.5-5.1); Sodium Level 136 mmol/L (136-145)
[2018-03-20 14:13] LABS: Hemoglobin A1c 10.7 % (4.2-6.3)
[2018-03-20 14:17] LABS: Vitamin D,25 Hydroxy 22.2 ng/mL (29.95-100.01)
[2018-03-20 14:17] LABS: PTHIN 76.9 pg/mL (18.4-80.1)
== END ==
LOC: LAB 12:20
PROVIDERS: Family Provider Internal Medicine; PCP Internal Medicine; Referring Provider Internal Medicine; Visit Provider Internal Medicine
DX: N18.3 Chronic kidney disease, stage 3 (moderate) (principal); N25.81 Secondary hyperparathyroidism of renal origin; R80.9 Proteinuria, unspecified
CPT/HCPCS: 36415; 80069; 82306; 82570; 83036; 83970; 84156; 85027